=== PATIENT | male | born 1950 | race Caucasian/White ===

== ENCOUNTER 2020-11-28 13:50 | Inpatient (IN) | payer OTHER, MEDICARE ==
[~2020-11-28] VITALS: Ht 175.3 cm; Wt 99.1 kg
[~2020-11-28 13:50] MED LIST: FURO40 PO; Ferrous Glucon324 M1 PO; Fruity C250 MG PO; LACT PO; PANT40 PO; POTA10T PO; PROBIOTIC1 EAC7 PO
[2020-11-28 14:05] LABS: Calcium, Ionized (POC) 1.21 mmol/L (1.10-1.46); Chloride (POC) 104 mmol/L (98-108); Creatinine (POC) 1.1 mg/dL (0.8-1.3); Glucose (ISTAT POC) 154 mg/dL (70-99); Hemoglobin (POC) 18.7 g/dL (13.5-17.5); Potassium (POC) 3.9 mmol/L (3.5-5.5); Sodium (POC) 142 mmol/L (135-148); Total CO2 (POC) 24 mmol/L (21-32)
[2020-11-28 14:12] LABS: Hemoglobin 18.9 g/dL (13.5-17.5); Mean Corpuscular HGB 32.6 pg (26.0-34.0); Mean Corpuscular HGB Conc 33.8 g/dL (31.5-36.5); Mean Corpuscular Volume 96 fL (80-100); Mean Platelet Volume 10.9 fL (9.1-12.4); Platelet Count 163 K/mm3 (150-400); RDW Coefficient Variation 12.7 % (11.7-14.2); RDW Standard Deviation 45.3 fL (35.1-46.3); White Blood Cell Count 10.46 K/mm3 (4.00-11.30)
[2020-11-28 14:39] LABS: Alanine Aminotransfer (ALT/SGP 74 U/L (12-78); Albumin, Blood 3.9 g/dL (3.4-5.0); Albumin/Globulin Ratio 1.1 (0.8-1.8); Alk Phos 100 U/L (50-136); Anion Gap 10 mmol/L (6-16); Aspartate Aminotrans (AST/SGOT 44 U/L (12-37); Bilirubin, Total 0.6 mg/dL (0.1-1.0); Blood Urea Nitrogen 13 mg/dL (8-24); Bun/Creatinine Ratio 11.9 (12.0-20.0); CO2, Blood 24 mmol/L (21-32); Calcium, Blood 10.2 mg/dL (8.5-10.1); Chloride, Blood 107 mmol/L (98-108); Creatinine, Blood 1.09 mg/dL (0.60-1.20); Globulin, Blood 3.5 g/dL (2.2-4.0); Glomerular Filtration Rate >60 (60-); Glucose, Blood 154 mg/dL (70-99); Potassium, Blood 3.9 mmol/L (3.5-5.5); Sodium, Blood 141 mmol/L (136-145); Total Protein, Blood 7.4 g/dL (6.4-8.2); Troponin I 0.269 ng/mL (0.000-0.040)
[2020-11-28 14:54] LABS: Hematocrit 55.9 % (37.0-53.0)
--- NOTE | 2020-11-28 15:25 | NUR ---
PT TO RECOVERY ROOM POST PROCEDURE. PT AWAKE AND CONVERSING APPROPRIATELY; REPORTS CHEST PAIN RESOLVED POST INTERVENTION. MONITOR SR 90'S, B/P 143/74, AFEBRILE, SPO2 96% RA. R ULNAR SITE NO SWELLING/HEMATOMA, TR BAND IN PLACE 10 ML AIR, R RADIAL SITE NO SWELLING/HEMATOMA TR BAND IN PLACE WITH 12ML AIR. PT'S FINGERS SLIGHTLY CYANOTIC, BUT POSITIVE PLEUTH; 2 CC AIR REMOVED RADIAL TR BAND FOR TOTAL OF 10 ML.
--- NOTE | 2020-11-28 15:47 | NUR ---
Received report from Lele in the Heart center. Pt is getting en echo and then will be transported to the ICU.
--- NOTE | 2020-11-28 15:48 | NUR ---
REPORT CALLED TO DAVID LOONEY; ALL QUESTIONS ANSWERED. PT HAVING ECHO THEN WILL BE TRANSFERRED TO ICU ROOM.
[2020-11-28] MEDS ORDERED: XARELTO20 MG PO (16:24)
--- NOTE | 2020-11-28 16:42 | NUR ---
Pt arrived to the room from the heart center. He has a right ulcer access site but has 2 TR bands since the radial site was not successful. VSS. Pt is A/Ox 4 with no complaints. His [facility] is at [facility] and we have contacted them and they will keep his dog until he is dcd from the hospital and can go pick her up. Pt has a urinal at the bedside. He is able to make his needs known and has his call light in reach.
[2020-11-28] MEDS ORDERED: VITAMIN D31000 UNI1 PO (17:34)
[2020-11-28] MEDS ORDERED: ATOR80 PO (17:34)
[2020-11-28] MEDS ORDERED: METO100ER PO (17:35)
[2020-11-28] MEDS ORDERED: GABAPENTIN600 MG PO (17:36)
[2020-11-28] MEDS ORDERED: MUPIROCIN22 G4 TOP (17:37)
--- NOTE | 2020-11-28 17:47 | NUR ---
Shift Summary Pt continues to rest in bed a/o x 4. He has no complaints and is pleasant and cooperative. Balloon deflation is in progress and so far so good. He is on RA and VSS. I used a doppler to find his pedal pulse to his right foot as pt reports he has poor circualtion to this extremity. t has a urinal at the bedside and call light in reach. He is able to make his needs known.
--- NOTE | 2020-11-28 21:31 | NUR ---
SHIFT ASSESSMENT ASSUMED CARE OF PT @ 1900. REPORT RECEIVED FROM DAVID LOONEY. PT A&OX4. DENIES CP OR SOB. TR BAND TO R ULNAR AND RADIAL ARTERY. CONTINUING TO SLOWLY RELEASE PRESSURE, SMALL HEMATOMA PROXIMAL TO RADIAL ACCESS SITE. VSS. URINAL AT BEDSIDE. NO COMPLAINTS OR CONCERNS FROM PT AT THIS TIME. WILL CONTINUE TO MONITOR CLOSELY.
--- NOTE | 2020-11-28 22:30 | NUR ---
UPDATE TR BANDS REMOVED, SMALL HEMATOMA NOTED TO RADIAL ACCESS. NO C/O CP FROM PT. CONTINUING TO MONITOR CLOSELY.
--- NOTE | 2020-11-29 05:58 | NUR ---
SHIFT SUMMARY PT A&OX4. ARTERIAL ACCESS SITES c NO SIGNS OF BLEEDING, ARM BOARD REMAINS IN PLACE. PT DENIES CP BUT HAVING OCCASIONAL RUNS OF V-TACH/ ECTOPY, SEE GRAPHICS IN CHART. VSS. NO COMPLAINTS FROM PT AT THIS TIME. WILL CONTINUE TO MONITOR CLOSELY.
[2020-11-29 06:38] LABS: BASOPHILS ABSOLUTE AUTO 0.02 K/mm3 (0.00-0.23); BASOPHILS PERCENT AUTO 0 % (0-2); EOSINOPHILS ABSOLUTE AUTO 0.05 K/mm3 (0.00-0.68); EOSINOPHILS PERCENT AUTO 1 % (0-6); Hematocrit 50.1 % (37.0-53.0); Hemoglobin 16.6 g/dL (13.5-17.5); IMMATURE GRAN ABSOLUTE AUTO 0.02 K/mm3 (0.00-0.10); IMMATURE GRAN PERCENT AUTO 0 % (0-1); LYMPHOCYTES ABSOLUTE AUTO 1.38 K/mm3 (0.84-5.20); LYMPHOCYTES PERCENT AUTO 16 % (21-46); MONOCYTES ABSOLUTE AUTO 0.96 K/mm3 (0.16-1.47); MONOCYTES PERCENT AUTO 11 % (4-13); Mean Corpuscular HGB Conc 33.1 g/dL (31.5-36.5); Mean Corpuscular Volume 97 fL (80-100); Mean Platelet Volume 10.9 fL (9.1-12.4); NEUTROPHILS ABSOLUTE AUTO 6.05 K/mm3 (1.96-9.15); NEUTROPHILS PERCENT AUTO 71 % (41-73); Platelet Count 146 K/mm3 (150-400); RDW Coefficient Variation 12.6 % (11.7-14.2); RDW Standard Deviation 45.4 fL (35.1-46.3); Red Blood Cell Count 5.18 M/mm3 (4.30-5.90); White Blood Cell Count 8.48 K/mm3 (4.00-11.30)
[2020-11-29 07:14] LABS: Anion Gap 4 mmol/L (6-16); Blood Urea Nitrogen 12 mg/dL (8-24); Bun/Creatinine Ratio 12.1 (12.0-20.0); CO2, Blood 29 mmol/L (21-32); Calcium, Blood 8.5 mg/dL (8.5-10.1); Chloride, Blood 108 mmol/L (98-108); Creatinine, Blood 0.99 mg/dL (0.60-1.20); Glomerular Filtration Rate >60 (60-); Glucose, Blood 113 mg/dL (70-99); Potassium, Blood 3.8 mmol/L (3.5-5.5); Sodium, Blood 141 mmol/L (136-145)
--- NOTE | 2020-11-29 07:55 | NUR ---
pt laying in bed awake a/ox3, pleasant and cooperative with care, follows commands well, denies pain, durring the night, lungs are clear t/o resp even and unlabored, no cough noted, hrr, heart monitor in place see strip, no edema noted, pp palpated on left foot, right requires doppler from multiple surgeries, iv sites to left arm, sites are clear and patent, btx4, abd flat soft nontender, voids without diff, skin has two access to right radial and right ulnar, sites are clear, no swelling, drainage noted, clear occlusive dressing placed, arm band is in place, tata finley, robe care done, call light in reach.
--- NOTE | 2020-11-29 13:30 | NUR ---
PT UP TO BR, STEADY ON FEET. NO COMPLAINTS. NO ACUTE CHANGES, CALL LIGHT IN REACH.
--- NOTE | 2020-11-29 18:28 | NUR ---
no acute changes this shift. pt was hoping to go home today, was downgraded to pcu status. call light in reach.
--- NOTE | 2020-11-29 19:40 | NUR ---
ASSUMED CARE OF PATIENT AT APPROXIMATELY 1910 FROM MAGY Galvan RN. PATIENT ALERT AND ORIENTED X4; SBA OUT OF BED; READY TO GO HOME; [facility] AND NOT BEING ABLE TO GET IT ON THE WEEKEND; ALSO WORRIED ABOUT HIS DOG BEING AT [facility]. PATIENT DENIES PAIN, DIZZINESS OR NAUSEA. REPORTS CHRONIC N/T IN LEG FROM SURGERIES IN PAST; TAKES GABAPENTIN AT NIGHT. PIV X2 S/L. RIGHT RADIAL SITE FROM ANGIOGRAM WITH SOME BRUISING NOTED; NO ACTIVE BLEEDING. NSR ON HEART MONITOR; OXYGEN SATURATION ABOVE 90% ON ROOM AIR. PCU STATUS.
--- NOTE | 2020-11-30 05:36 | NUR ---
PATIENT SLEPT ABOUT SIX HOURS LAST NIGHT. VSS. NO CP. NO ACUTE CHANGES
[2020-11-30 06:09] LABS: BASOPHILS ABSOLUTE AUTO 0.03 K/mm3 (0.00-0.23); BASOPHILS PERCENT AUTO 0 % (0-2); EOSINOPHILS ABSOLUTE AUTO 0.09 K/mm3 (0.00-0.68); EOSINOPHILS PERCENT AUTO 1 % (0-6); Hematocrit 50.1 % (37.0-53.0); Hemoglobin 16.8 g/dL (13.5-17.5); IMMATURE GRAN ABSOLUTE AUTO 0.02 K/mm3 (0.00-0.10); IMMATURE GRAN PERCENT AUTO 0 % (0-1); LYMPHOCYTES ABSOLUTE AUTO 1.11 K/mm3 (0.84-5.20); LYMPHOCYTES PERCENT AUTO 14 % (21-46); MONOCYTES ABSOLUTE AUTO 0.83 K/mm3 (0.16-1.47); MONOCYTES PERCENT AUTO 10 % (4-13); Mean Corpuscular HGB 32.2 pg (26.0-34.0); Mean Corpuscular HGB Conc 33.5 g/dL (31.5-36.5); Mean Corpuscular Volume 96 fL (80-100); Mean Platelet Volume 11.3 fL (9.1-12.4); NEUTROPHILS ABSOLUTE AUTO 6.04 K/mm3 (1.96-9.15); NEUTROPHILS PERCENT AUTO 74 % (41-73); Platelet Count 121 K/mm3 (150-400); RDW Coefficient Variation 12.6 % (11.7-14.2); Red Blood Cell Count 5.22 M/mm3 (4.30-5.90); White Blood Cell Count 8.12 K/mm3 (4.00-11.30)
[2020-11-30 06:46] LABS: Anion Gap 4 mmol/L (6-16); Blood Urea Nitrogen 14 mg/dL (8-24); Bun/Creatinine Ratio 15.7 (12.0-20.0); CHOL/HDL RATIO 4.1; CO2, Blood 28 mmol/L (21-32); Calcium, Blood 8.6 mg/dL (8.5-10.1); Chloride, Blood 110 mmol/L (98-108); Cholesterol 119 mg/dL (50-200); Creatinine, Blood 0.89 mg/dL (0.60-1.20); Glomerular Filtration Rate >60 (60-); Glucose, Blood 98 mg/dL (70-99); HDL Cholesterol 29 mg/dL (>39); LDL/HDL RATIO 1.4; Low Density Lipoprotein Chol 41 mg/dL (0-110); Potassium, Blood 3.9 mmol/L (3.5-5.5); Sodium, Blood 142 mmol/L (136-145); Triglycerides 247 mg/dL (30-160); Very Low Density Lipoprot Chol 49 mg/dL (6-32)
--- NOTE | 2020-11-30 09:30 | NUR ---
DR. MENDOZA AT BEDSIDE. DISCUSSED POC. NOTIFIED HIM I COULD ONLY GET RADIAL AND ULNAR PULSE ON PATIENT'S R WRIST VIA DOPPLER. DR. MENDOZA VIEWED SITE AND STATED THAT IT LOOKED FINE, PATIENT DOES HAVE BRUISING BUT IT IS NOT HARD. DR. MENDOZA REMOVED TEGADERM TO SITE. STATES PLAN IS TO DISCHARGE HOME TODAY. PATIENT NEEDS TO ST[facility] LETTER[facility] SO THAT HE CAN HAVE HIS MEDS THIS WEEKEND. OK FOR PATIENT TO DRIVE HIMSELF TODAY. PLAN IS FOR CARDIAC REHAB AND F/U APPOINTMENT IN 3 WEEKS.
[2020-11-30] MEDS ORDERED: Aspir 8181 MG PO (11:09)
[2020-11-30] MEDS ORDERED: CLOP75 PO (11:11)
[2020-11-30] MEDS ORDERED: IRBE75 PO (11:12)
[2020-11-30] MEDS ORDERED: NITR.4SL SL (11:13)
--- NOTE | 2020-11-30 12:45 | NUR ---
PATIENT DISCHARGED HOME AT APPROXIMATELY 1220. ESCORTED OUT VIA WHELLCHAIR BY JOHNNA KEBEDE. [facility] CAME TO DRIVE PATIENT TO THE [place] WHERE HIS CAR IS SO THAT HE CAN DRIVE HOME. OK TO DRIVE PER DR. MENDOZA. MEDICATIONS CALLED TO [facility] ON [address] BY TABBY HERNANDEZ. GAVE PATIENT HIS STENT CARD AND XARELTO COUPON. REVIEWED DISCHARGE INSTRUCTIONS AND DISCHARGE MEDICATIONS WITH PATIENT, COPIES GIVEN TO TAKE HOME, NO FURTHER QUESTIONS AT TIME OF DISCHARGE. PATIENT AWARE TO GO FINISHER OPERATOR MEDICATIONS AT [facility] AND TO NOT WAIT UNTIL [facility]NESDAY WHEN [facility]. DISCHARGE ORDERS FAXED TO CARDIOLOGY OFFICE SO THAT THEY CAN CALL PATIENT TO SCHEDULE FOLLOW UP APPOINTMENT. NO FURTHER QUESTIONS AT TIME OF DISCHARGE. IV'S D/C'D.
== END 2020-11-30 12:50 | disposition home or self-care (01) | DRG 247 ==
LOC: ER 13:50 → ICUW 14:02
PROVIDERS: Emergency Medicine; Internal Medicine Cardiovascular Disease; ADMIT Internal Medicine Cardiovascular Disease
PROC: 027034Z Dilation of Coronary Artery, One Artery with Drug-eluting Intraluminal Device, Percutaneous Approach (ICD-10-PCS; principal; 2020-11-28)
PROC: B2111ZZ Fluoroscopy of Multiple Coronary Arteries using Low Osmolar Contrast (ICD-10-PCS; 2020-11-28)
DX: I21.29 ST elevation (STEMI) myocardial infarction involving other sites (principal); I73.9 Peripheral vascular disease, unspecified; I10 Essential (primary) hypertension; E78.5 Hyperlipidemia, unspecified; I25.5 Ischemic cardiomyopathy; F17.200 Nicotine dependence, unspecified, uncomplicated; Z71.6 Tobacco abuse counseling; Z79.01 Long term (current) use of anticoagulants
CPT/HCPCS: 36415; 76937; 80047; 80048; 80053; 80061; 84484; 85014; 85025; 85027; 85347; 86850; 86900; 86901; 92920; 92921; 93005; 93010; 93454; 96374-59; 99152; 99153; 99285-25; A9270; C1725; C1769; C1874; C1887; C1894; C8923; C9606; J0461; J1644; J2250; J3010; J7030; J7040; Q9957; Q9967

== ENCOUNTER 2021-01-06 10:42 | Observation (INO) | payer OTHER, MEDICARE ==
[~2021-01-06] VITALS: Ht 180.3 cm; Wt 105.0 kg
[~2021-01-06 10:42] MED LIST changes: +ATOR80 PO; +Aspir 8181 MG PO; +CLOP75 PO; +GABAPENTIN600 MG PO; +IRBE75 PO; +METO100ER PO; +MUPIROCIN22 G4 TOP; +NITR.4SL SL; +VITAMIN D31000 UNI1 PO; +XARELTO20 MG PO
[2021-01-06 11:15] LABS: BASOPHILS ABSOLUTE AUTO 0.03 K/mm3 (0.00-0.23); BASOPHILS PERCENT AUTO 1 % (0-2); EOSINOPHILS ABSOLUTE AUTO 0.07 K/mm3 (0.00-0.68); EOSINOPHILS PERCENT AUTO 1 % (0-6); Hematocrit 45.8 % (37.0-53.0); Hemoglobin 15.2 g/dL (13.5-17.5); IMMATURE GRAN ABSOLUTE AUTO 0.01 K/mm3 (0.00-0.10); IMMATURE GRAN PERCENT AUTO 0 % (0-1); LYMPHOCYTES ABSOLUTE AUTO 0.84 K/mm3 (0.84-5.20); LYMPHOCYTES PERCENT AUTO 15 % (21-46); MONOCYTES ABSOLUTE AUTO 0.62 K/mm3 (0.16-1.47); MONOCYTES PERCENT AUTO 11 % (4-13); Mean Corpuscular HGB 31.9 pg (26.0-34.0); Mean Corpuscular HGB Conc 33.2 g/dL (31.5-36.5); Mean Corpuscular Volume 96 fL (80-100); Mean Platelet Volume 10.4 fL (9.1-12.4); NEUTROPHILS ABSOLUTE AUTO 3.91 K/mm3 (1.96-9.15); NEUTROPHILS PERCENT AUTO 71 % (41-73); NRBC ABSOLUTE 0.03 K/mm3 (0.00-0.02); NRBC Auto 0.5 /100 WBC (0.0-0.2); Platelet Count 154 K/mm3 (150-400); RDW Coefficient Variation 14.2 % (11.7-14.2); RDW Standard Deviation 50.5 fL (35.1-46.3); Red Blood Cell Count 4.77 M/mm3 (4.30-5.90); White Blood Cell Count 5.48 K/mm3 (4.00-11.30)
[2021-01-06 11:33] LABS: Alanine Aminotransfer (ALT/SGP 23 U/L (12-78); Albumin, Blood 3.3 g/dL (3.4-5.0); Alk Phos 85 U/L (50-136); Anion Gap 5 mmol/L (6-16); Aspartate Aminotrans (AST/SGOT 18 U/L (12-37); Bilirubin, Total 0.6 mg/dL (0.1-1.0); Blood Urea Nitrogen 12 mg/dL (8-24); Bun/Creatinine Ratio 12.7 (12.0-20.0); CO2, Blood 29 mmol/L (21-32); Calcium, Blood 7.9 mg/dL (8.5-10.1); Chloride, Blood 112 mmol/L (98-108); Creatinine, Blood 0.94 mg/dL (0.60-1.20); Globulin, Blood 3.4 g/dL (2.2-4.0); Glomerular Filtration Rate >60 (60-); Glucose, Blood 108 mg/dL (70-99); Sodium, Blood 146 mmol/L (136-145); Total Protein, Blood 6.7 g/dL (6.4-8.2); Troponin I 0.032 ng/mL (0.000-0.040)
[2021-01-06] MEDS ORDERED: ATOR80 PO (11:40)
[2021-01-06] MEDS ORDERED: THERA-D2000 UNIT PO (11:41)
[2021-01-06] MEDS ORDERED: GABAPENTIN600 MG PO (11:41)
[2021-01-06] MEDS ORDERED: NEURONTIN600 MG PO (11:43)
[2021-01-06] MEDS ORDERED: PANT40 PO (11:43)
[2021-01-06] MEDS ORDERED: XARELTO20 MG PO (11:44)
[2021-01-06] MEDS ORDERED: MUPIROCIN22 G4 (11:45)
[2021-01-06] MEDS ORDERED: METO50ER PO (11:45)
[2021-01-06 14:42] LABS: SARS-Cov-2 (COVID-19) PCR, MMC NEGATIVE (NEGATIVE)
--- NOTE | 2021-01-06 18:11 | NUR ---
PT TO ROOM 217 AT 1715. PT IS A/O X4, SBA FROM WHEELCHAIR TO BED. ORIENTED TO ROOM AND CALL LIGHT. PT TOLERATING PO INTAKE. URINAL AT BEDSIDE. PT DENIES CHEST PAIN/PRESSURE. TELE PLACED. CALL LIGHT IN REACH.
[2021-01-07 05:06] LABS: BASOPHILS ABSOLUTE AUTO 0.03 K/mm3 (0.00-0.23); BASOPHILS PERCENT AUTO 1 % (0-2); EOSINOPHILS PERCENT AUTO 2 % (0-6); Hematocrit 41.8 % (37.0-53.0); Hemoglobin 13.7 g/dL (13.5-17.5); IMMATURE GRAN ABSOLUTE AUTO 0.02 K/mm3 (0.00-0.10); IMMATURE GRAN PERCENT AUTO 0 % (0-1); LYMPHOCYTES ABSOLUTE AUTO 1.28 K/mm3 (0.84-5.20); LYMPHOCYTES PERCENT AUTO 26 % (21-46); MONOCYTES ABSOLUTE AUTO 0.69 K/mm3 (0.16-1.47); MONOCYTES PERCENT AUTO 14 % (4-13); Mean Corpuscular HGB 31.5 pg (26.0-34.0); Mean Corpuscular HGB Conc 32.8 g/dL (31.5-36.5); Mean Corpuscular Volume 96 fL (80-100); Mean Platelet Volume 10.7 fL (9.1-12.4); NEUTROPHILS ABSOLUTE AUTO 2.77 K/mm3 (1.96-9.15); NEUTROPHILS PERCENT AUTO 57 % (41-73); Platelet Count 132 K/mm3 (150-400); RDW Coefficient Variation 14.1 % (11.7-14.2); RDW Standard Deviation 49.1 fL (35.1-46.3); Red Blood Cell Count 4.35 M/mm3 (4.30-5.90); White Blood Cell Count 4.89 K/mm3 (4.00-11.30)
[2021-01-07 05:37] LABS: Anion Gap 6 mmol/L (6-16); Blood Urea Nitrogen 12 mg/dL (8-24); Bun/Creatinine Ratio 13.5 (12.0-20.0); CO2, Blood 27 mmol/L (21-32); Calcium, Blood 7.3 mg/dL (8.5-10.1); Chloride, Blood 112 mmol/L (98-108); Creatinine, Blood 0.89 mg/dL (0.60-1.20); Glomerular Filtration Rate >60 (60-); Glucose, Blood 93 mg/dL (70-99); Potassium, Blood 3.4 mmol/L (3.5-5.5); Sodium, Blood 145 mmol/L (136-145)
--- NOTE | 2021-01-07 06:10 | NUR ---
SHIFT SUMMARY: PT DENIES CP THROUGHOUT SHIFT. EKG DONE PER TELE RECOMMENDATION AY 2200. NO CHANGES IN EKG COMPARED TO PREVIOUS ONE DONE THIS ADMISSION. HR DROPPING IN 40'S WHILE PT SLEEPING. 5 BEAT RUN OF V-TACH AT APPROX 0120. NITRO OINTMENT APPLIED TO LEFT CHEST PER ORDERS. PT DENIES N/V.
--- NOTE | 2021-01-07 13:49 | NUR ---
PT TO ACID BATH MIXER FOR PROCEDURE
--- NOTE | 2021-01-07 14:22 | NUR ---
TRANSFER PT HAS BEEN A/O X4, IND OR SBA IN ROOM. TOLERATING PO INTAKE AND VOIDING. PT HAS DENIED CHEST PAIN/PRESSURE T/O THE DAY. TELE HAS BEEN IN PLACE. PT SEEN BY DR BRAVO THIS AFTERNOON AND WAS TAKEN TO TOOL FILER ABOUT 1330. HE WILL BE GOING TO PCU 1 TO RECOVER. REPORT GIVEN TO DIGITAL MEDIA DESIGNER. PERSONAL BELONGINGS TAKEN TO PCU1 ROOM. MEDICATIONS LOCKED IN PCU1 DRAWER.
--- NOTE | 2021-01-07 16:20 | NUR ---
Pt arrived to PCU 1. TR band in place, ulnar access. Fingers of right hand distal to TR band are pink, with cap refill 3 seconds. Pt denies pain. Swelling noted distally and proximally to the TR band on the right wrist, and compressed with gauze and coban. Pt continues to deny pain. Cap refill remains brisk. Vital signs are stable. Pt denies dyspnea, denies chest pain.
[2021-01-07] MEDS ORDERED: ASPI81CH PO (17:05)
[2021-01-07] MEDS ORDERED: IRBE150 PO (17:05)
[2021-01-07] MEDS ORDERED: CLOP75 PO (17:05)
[2021-01-07] MEDS ORDERED: Isosorbide Mono30 MG PO (17:06)
--- NOTE | 2021-01-07 17:13 | NUR ---
UPDATE RN HOLDING PRESSURE AND ELEVATING RIGHT WRIST WHERE NOTED SWELLING IS LOCATED. SWELLING IS LOCATED DISTAL TO TR BAND. MANUAL PRESSURE IS RELIEVING SOME SWELLING AND TISSUE SURROUNDING TR BAND IS BECOMING MORE SOFT. TR BAND STILL INFLATED WITH 11 ML OF AIR. CAP REFILL LESS THAN 2 SECONDS. SPO2 MONITOR LOCATED ON RIGHT THIRD FINGER READING SATURATIONS ABOVE 95%. PATIENT DENIES PAIN AT ANGIO SITE WELL CHEST PAIN OR DISCOMFORT.
--- NOTE | 2021-01-07 17:56 | NUR ---
UPDATE CALL PLACED TO DR. WEIR CONCERNING SWELLING AROUND TR BAND. DR. WEIR RECOMMENDED CONSERVATIVE DEFLATION OF TR BAND DUE TO SEVERAL ATTEMPTS DURING ANGIO. COBAN/GAUZE PLACED AROUND SWELLING. O2 SATURATION ON RIGHT FINGERS STILL MAINTAINING ABOVE 95%.
--- NOTE | 2021-01-07 22:12 | NUR ---
SHIFT SUMMARY ASSUMED CARE OF PT AT 1900. PT IS A/OX4. HEART SOUNDS REGULAR, LUNG SOUNDS CLEAR. PT HAS A R RADIAL SITE. PER DAYSHIFT, THE SWELLING IN PT ARM HAS BEEN THERE FOR A WHILE NOW AND DR WEIR IS AWARE OF IT. PT TR BAND FINISHED BEING DELFATED AT 2100. NO MORE BLEEDING OR SWELLING NOTED, THERE IS BRUSING AND PT STATES THAT IT SLIGHTLY PAINFUL. PT WAS EDUCATED ABOUT HOW DRIVING AFTER ANESESIA IS NOT ADVISED AND NEITHER IS USING HIS R WRIST. PT VERBALIZED UNDERSTANDING. SITE CLEANED AND DRESSED, PT LEFT WITH ARM BOARD ON. [employer] [facility] NOTIFIED TO PICK PT UP AT ER ENTRANCE AT 2200. PT LEFT ROOM AT 2202.
== END 2021-01-07 22:00 | disposition home or self-care (01) ==
LOC: ER 10:42 → ERHOLD 10:43 → SURS 10:43 → UNDODEPER 17:17 → SURS 17:25 → PCU 01-07 16:10
PROVIDERS: Emergency Medicine; Nurse Practitioner Acute Care; ADMIT Internal Medicine
DX: R07.89 Other chest pain (principal); I25.2 Old myocardial infarction; F17.210 Nicotine dependence, cigarettes, uncomplicated; I25.10 Atherosclerotic heart disease of native coronary artery without angina pectoris; I50.22 Chronic systolic (congestive) heart failure; I25.5 Ischemic cardiomyopathy; I11.0 Hypertensive heart disease with heart failure; E78.5 Hyperlipidemia, unspecified; Z20.822 Contact with and (suspected) exposure to COVID-19; I73.9 Peripheral vascular disease, unspecified; K21.9 Gastro-esophageal reflux disease without esophagitis; Z79.01 Long term (current) use of anticoagulants; Z79.82 Long term (current) use of aspirin; Z79.02 Long term (current) use of antithrombotics/antiplatelets; Z95.5 Presence of coronary angioplasty implant and graft
CPT/HCPCS: 36415; 71045; 80048; 80053; 84484; 85025; 85347; 92978; 92979; 93005; 93010; 93454; 99152; 99153; 99285-25; A9270; C1753; C1769; C1887; C1894; G0378; J1644; J2250; J3010; J7030; J7050; Q9967; U0004

== ENCOUNTER 2021-02-27 18:42 | Emergency (ER) | payer OTHER ==
[~2021-02-27] VITALS: Ht 177.8 cm; Wt 99.8 kg
[~2021-02-27 18:42] MED LIST changes: +ASPI81CH PO; +IRBE150 PO; +Isosorbide Mono30 MG PO; +METO50ER PO; +MUPIROCIN22 G4; +NEURONTIN600 MG PO; +THERA-D2000 UNIT PO
[2021-02-27 19:12] LABS: PCO2 Arterial 38.8 mmHg (35-45); PO2 Arterial 77.1 mmHg (80-100); pH Blood Arterial 7.33 (7.35-7.45)
== END 2021-02-27 19:44 | disposition home or self-care (01) ==
LOC: ER 18:42
PROVIDERS: Physician Assistant
DX: T59.811A Toxic effect of smoke, accidental (unintentional), initial encounter (principal); I25.2 Old myocardial infarction; F17.200 Nicotine dependence, unspecified, uncomplicated; Z79.899 Other long term (current) drug therapy; Z79.02 Long term (current) use of antithrombotics/antiplatelets
CPT/HCPCS: 36600; 71045; 82375; 82803; 99284-25

== ENCOUNTER 2021-03-28 10:16 | Inpatient (IN) | payer OTHER ==
[~2021-03-28] VITALS: Ht 165.1 cm; Wt 102.0 kg
[~2021-03-28 10:16] MED LIST changes: -Isosorbide Mono30 MG PO; +Isosorbide Mono60 MG PO; +XARELTO10 MG PO
[2021-03-28 10:35] LABS: Calcium, Ionized (POC) 1.08 mmol/L (1.10-1.46); Chloride (POC) 104 mmol/L (98-108); Creatinine (POC) 1.5 mg/dL (0.8-1.3); Glucose (ISTAT POC) 127 mg/dL (70-99); Hemoglobin (POC) 19.7 g/dL (13.5-17.5); Potassium (POC) 2.9 mmol/L (3.5-5.5); Sodium (POC) 144 mmol/L (135-148); Total CO2 (POC) 24 mmol/L (21-32)
[2021-03-28 10:50] LABS: BASOPHILS ABSOLUTE AUTO 0.05 K/mm3 (0.00-0.23); BASOPHILS PERCENT AUTO 1 % (0-2); EOSINOPHILS ABSOLUTE AUTO 0.06 K/mm3 (0.00-0.68); EOSINOPHILS PERCENT AUTO 1 % (0-6); Hemoglobin 19.1 g/dL (13.5-17.5); IMMATURE GRAN ABSOLUTE AUTO 0.03 K/mm3 (0.00-0.10); IMMATURE GRAN PERCENT AUTO 0 % (0-1); LYMPHOCYTES ABSOLUTE AUTO 1.68 K/mm3 (0.84-5.20); LYMPHOCYTES PERCENT AUTO 18 % (21-46); MONOCYTES ABSOLUTE AUTO 0.99 K/mm3 (0.16-1.47); MONOCYTES PERCENT AUTO 11 % (4-13); Mean Corpuscular HGB Conc 33.2 g/dL (31.5-36.5); Mean Corpuscular Volume 93 fL (80-100); Mean Platelet Volume 10.7 fL (9.1-12.4); NEUTROPHILS PERCENT AUTO 70 % (41-73); Platelet Count 254 K/mm3 (150-400); RDW Coefficient Variation 14.5 % (11.7-14.2); RDW Standard Deviation 49.6 fL (35.1-46.3); Red Blood Cell Count 6.17 M/mm3 (4.30-5.90); White Blood Cell Count 9.31 K/mm3 (4.00-11.30)
[2021-03-28 11:14] LABS: Alanine Aminotransfer (ALT/SGP 23 U/L (12-78); Albumin, Blood 3.8 g/dL (3.4-5.0); Albumin/Globulin Ratio 0.9 (0.8-1.8); Alk Phos 112 U/L (50-136); Anion Gap 10 mmol/L (6-16); Aspartate Aminotrans (AST/SGOT 22 U/L (12-37); Bilirubin, Total 0.4 mg/dL (0.1-1.0); Blood Urea Nitrogen 20 mg/dL (8-24); CO2, Blood 23 mmol/L (21-32); Calcium, Blood 8.4 mg/dL (8.5-10.1); Chloride, Blood 108 mmol/L (98-108); Creatinine, Blood 1.43 mg/dL (0.60-1.20); Globulin, Blood 4.4 g/dL (2.2-4.0); Glomerular Filtration Rate 49 (60-); Glucose, Blood 124 mg/dL (70-99); Potassium, Blood 2.9 mmol/L (3.5-5.5); Sodium, Blood 141 mmol/L (136-145); Total Protein, Blood 8.2 g/dL (6.4-8.2); Troponin I <0.015 ng/mL (0.000-0.040)
[2021-03-28 11:24] LABS: Hematocrit 57.5 % (37.0-53.0)
[2021-03-28 13:32] LABS: International Normalized Ratio 1.16; Prothrombin Time Results 12.1 Sec (9.7-11.5)
[2021-03-28 18:05] LABS: SARS-Cov-2 (COVID-19) PCR, MMC NEGATIVE (NEGATIVE)
--- NOTE | 2021-03-28 18:49 | NUR ---
RECIEVED PATIETN FROM PRODUCTION ASSEMBLY SUPERVISOR, REPORT GIVEN BEDSIDE. ASSESSMENT NOTED IN CHART. PT IN NSR, HTN BP 180/103, LS CLEAR AND IN NO DISTRESS. WILL CONTINUE TO MONITIR.
--- NOTE | 2021-03-28 18:51 | NUR ---
PT HAD RUNS OF VTACH AT APPROX 1500, MAG AT 1.3, MAG GIVEN ORDERED AND PT VTACH RESOLVED
[2021-03-28 21:02] LABS: Source, Urine Clean Catch
[2021-03-28 21:04] LABS: Bilirubin, Urine Neg (Neg); Blood, Urine 1+ (Neg); Glucose Qualitative, Urine Neg (Neg); Ketones, Urine 2+ (Neg); Leukocyte Esterase, Urine 1+ (Neg); Nitrite, Urine Neg (Neg); Protein, Urine 1+ (Neg); Urobilinogen, Urine NORM (Normal)
[2021-03-28 21:14] LABS: Appearance, Urine Hazy (Clear); Color, Urine Yellow (P-Yellow)
[2021-03-28 21:16] LABS: Red Blood Cells, Urine 0-2 /hpf (0-2); Squamous Epithelial Cells Few /hpf (Few)
[2021-03-28 21:17] LABS: Bacteria Rare /hpf; Hyaline Casts 0-2 /lpf (0-2)
[2021-03-28 21:18] LABS: U Amphetamine Screen Not Detected; U Barbituate Screen Not Detected; U Benzodiazapine Screen Not Detected; U Buprenorphine Screen Not Detected; U Cannabinoids Screen Not Detected; U Cocaine Screen Not Detected; U Methadone Screen Not Detected; U Methamphetamine Screen DETECTED; U Opiates Screen Not Detected; U Oxycodone Screen Not Detected; U Phencyclidine Screen Not Detected; U Propoxyphene Screen Not Detected
[2021-03-29 01:12] LABS: BASOPHILS ABSOLUTE AUTO 0.04 K/mm3 (0.00-0.23); BASOPHILS PERCENT AUTO 1 % (0-2); EOSINOPHILS ABSOLUTE AUTO 0.04 K/mm3 (0.00-0.68); EOSINOPHILS PERCENT AUTO 1 % (0-6); Hematocrit 46.2 % (37.0-53.0); Hemoglobin 15.3 g/dL (13.5-17.5); IMMATURE GRAN ABSOLUTE AUTO 0.02 K/mm3 (0.00-0.10); IMMATURE GRAN PERCENT AUTO 0 % (0-1); LYMPHOCYTES ABSOLUTE AUTO 0.65 K/mm3 (0.84-5.20); LYMPHOCYTES PERCENT AUTO 8 % (21-46); MONOCYTES ABSOLUTE AUTO 0.94 K/mm3 (0.16-1.47); MONOCYTES PERCENT AUTO 12 % (4-13); Mean Corpuscular HGB 30.8 pg (26.0-34.0); Mean Corpuscular HGB Conc 33.1 g/dL (31.5-36.5); Mean Corpuscular Volume 93 fL (80-100); Mean Platelet Volume 10.6 fL (9.1-12.4); NEUTROPHILS ABSOLUTE AUTO 6.11 K/mm3 (1.96-9.15); NEUTROPHILS PERCENT AUTO 78 % (41-73); Platelet Count 165 K/mm3 (150-400); RDW Coefficient Variation 14.6 % (11.7-14.2); RDW Standard Deviation 49.4 fL (35.1-46.3); Red Blood Cell Count 4.97 M/mm3 (4.30-5.90)
[2021-03-29 01:31] LABS: Magnesium, Blood 1.4 mg/dL (1.6-2.4)
[2021-03-29 01:33] LABS: Alanine Aminotransfer (ALT/SGP 32 U/L (12-78); Albumin, Blood 2.8 g/dL (3.4-5.0); Albumin/Globulin Ratio 0.8 (0.8-1.8); Alk Phos 81 U/L (50-136); Anion Gap 7 mmol/L (6-16); Aspartate Aminotrans (AST/SGOT 197 U/L (12-37); Bilirubin, Total 0.8 mg/dL (0.1-1.0); Blood Urea Nitrogen 21 mg/dL (8-24); CO2, Blood 24 mmol/L (21-32); Calcium, Blood 7.6 mg/dL (8.5-10.1); Chloride, Blood 111 mmol/L (98-108); Globulin, Blood 3.4 g/dL (2.2-4.0); Glomerular Filtration Rate >60 (60-); Glucose, Blood 117 mg/dL (70-99); Potassium, Blood 3.4 mmol/L (3.5-5.5); Sodium, Blood 142 mmol/L (136-145)
[2021-03-29 01:34] LABS: Total Protein, Blood 6.2 g/dL (6.4-8.2)
--- NOTE | 2021-03-29 06:26 | NUR ---
RESTING AT THIS TIME, RIGHT GROIN AND RIGHT WRIST UNCHANGED FROM INITIAL ASSESSMENT. UP TO BATHROOM A COUPLE OF TIMES AND TOLERATED WELL. REAPPLIED O2 DUE TO DESAT WHILE SLEEPING. O2 SATS HIGH 90'S ON ROOM AIR WHILE AWAKE, DROPPING DOWN TO LOW 80'S WHILE SLEEPING. HEART RATE SR WITH OCCASIONAL RUNS OF VTACH.
--- NOTE | 2021-03-29 08:15 | NUR ---
ASSUMED CARE BEDSIDE REPORT FROM MULU HERNANDEZ. PT RESTING IN BED. A&OX 3. ANSWERS QUESTIONS APPROPRIATELY. DENIES COMPLAINTS. LUNGS COARSE. NON PRODUCTIVE COUGH. HX OF SMOKING. SR, RATE 70'S. NO ECTOPY NOTED AT THIS TIME. MAG AND K TO BE REPLACED. BP STABLE. ABD ROUND, SOFT, NON TENDER. BT X 4. PT INDEPENDENT. PUNTUCE SITES TO RIGHT RADIAL, DRESSING C/D/I, NO BRUISING OR SWELLING NOTED, RIGHT GROIN, ECCHYMOSIS NOTED, SOFT, NON TENDER. HEPARIN GTT INFUSING AT 17 UNITS/HR. WILL CONTINUE TO MONITOR.
--- NOTE | 2021-03-29 17:31 | NUR ---
SHIFT SUMMARY PT STATUS CHANGED TO PCU THIS SHIFT. NO ACUTE CHANGES. PLAN TO D/C HEPARIN PRIOR TO SHIFT CHANGE. BRILINTA AND PLAVIX STARTED. GROIN AND RADIAL SITES REMAIN UNCHANGED. K AND MAG REPLACED THIS SHIFT. VSS. WILL CONTINUE TO MONITOR UNTIL REPORT TO ONCOMING NURSE.
[2021-03-30 04:05] LABS: BASOPHILS ABSOLUTE AUTO 0.02 K/mm3 (0.00-0.23); BASOPHILS PERCENT AUTO 0 % (0-2); EOSINOPHILS ABSOLUTE AUTO 0.11 K/mm3 (0.00-0.68); EOSINOPHILS PERCENT AUTO 2 % (0-6); Hematocrit 40.8 % (37.0-53.0); Hemoglobin 13.1 g/dL (13.5-17.5); IMMATURE GRAN ABSOLUTE AUTO 0.03 K/mm3 (0.00-0.10); IMMATURE GRAN PERCENT AUTO 0 % (0-1); LYMPHOCYTES ABSOLUTE AUTO 0.85 K/mm3 (0.84-5.20); LYMPHOCYTES PERCENT AUTO 13 % (21-46); MONOCYTES PERCENT AUTO 12 % (4-13); Mean Corpuscular HGB 30.9 pg (26.0-34.0); Mean Corpuscular HGB Conc 32.1 g/dL (31.5-36.5); Mean Corpuscular Volume 96 fL (80-100); Mean Platelet Volume 11.2 fL (9.1-12.4); NEUTROPHILS ABSOLUTE AUTO 4.98 K/mm3 (1.96-9.15); NEUTROPHILS PERCENT AUTO 73 % (41-73); Platelet Count 135 K/mm3 (150-400); RDW Coefficient Variation 14.5 % (11.7-14.2); RDW Standard Deviation 50.6 fL (35.1-46.3); Red Blood Cell Count 4.24 M/mm3 (4.30-5.90); White Blood Cell Count 6.79 K/mm3 (4.00-11.30)
[2021-03-30 04:24] LABS: Albumin, Blood 2.6 g/dL (3.4-5.0); Anion Gap 5 mmol/L (6-16); Blood Urea Nitrogen 13 mg/dL (8-24); Bun/Creatinine Ratio 13.2 (12.0-20.0); CO2, Blood 24 mmol/L (21-32); Calcium, Blood 7.8 mg/dL (8.5-10.1); Chloride, Blood 114 mmol/L (98-108); Creatinine, Blood 0.99 mg/dL (0.60-1.20); Glomerular Filtration Rate >60 (60-); Glucose, Blood 101 mg/dL (70-99); Magnesium, Blood 1.4 mg/dL (1.6-2.4); Phosphorus, Blood 1.9 mg/dL (2.5-4.9); Potassium, Blood 3.4 mmol/L (3.5-5.5); Sodium, Blood 143 mmol/L (136-145)
--- NOTE | 2021-03-30 05:53 | NUR ---
RESTING AT THIS TIME. OXYGEN APPLIED AT 2L NC THROUGH NIGHT DUE TO SATS DROPPING WHILE SLEEPING. GROIN SITE REMAINS UNCHANGED. POTASSIUM AND MAG LEVELS LOW THIS AM, ORDER RECIEVED FOR REPLACEMENT.
[2021-03-30 08:47] LABS: Albumin, Blood 2.7 g/dL (3.4-5.0); Anion Gap 6 mmol/L (6-16); Blood Urea Nitrogen 11 mg/dL (8-24); Bun/Creatinine Ratio 12.1 (12.0-20.0); CO2, Blood 25 mmol/L (21-32); Calcium, Blood 7.6 mg/dL (8.5-10.1); Chloride, Blood 113 mmol/L (98-108); Creatinine, Blood 0.91 mg/dL (0.60-1.20); Glomerular Filtration Rate >60 (60-); Glucose, Blood 88 mg/dL (70-99); Magnesium, Blood 1.8 mg/dL (1.6-2.4); Potassium, Blood 3.6 mmol/L (3.5-5.5); Sodium, Blood 144 mmol/L (136-145)
--- NOTE | 2021-03-30 09:05 | NUR ---
ASSUMED CARE REPORT FROM MULU HERNANDEZ AT 0700. PT RESTING IN BED. A&OX 3. DENIES COMPLAINTS. LUNGS DIM IN BASES. VSS. NO CHANGES IN GROIN AND RADIAL SITES. ANTICIPATE D/C TODAY. WILL CONTINUE TO MONITOR.
[2021-03-30] MEDS ORDERED: NICO21TP TOP (11:35)
[2021-03-30] MEDS ORDERED: TICA90TA PO (11:36)
[2021-03-30] MEDS ORDERED: ACET325 PO (11:37)
--- NOTE | 2021-03-30 12:42 | NUR ---
D/C INSTRUCTIONS PROVIDED. PT TO F/U c CARDIOLOGY IN 1 WEEK, PCP IN 3 DAYS AT [facility]. RX SENT TO [facility]. VERBALIZED UNDERSTANDING OF D/C INSTRUCTIONS. ALL BELONGINGS SENT HOME c PT. IV'S REMOVED AND DRESSINGS APPLIED. OTD NAD.
== END 2021-03-30 12:30 | disposition home or self-care (01) | DRG 246 ==
LOC: ER 10:16 → ICUW 10:35 → ICUE 10:35
PROVIDERS: Emergency Medicine; Internal Medicine; Nurse Practitioner Acute Care
PROC: 027034Z Dilation of Coronary Artery, One Artery with Drug-eluting Intraluminal Device, Percutaneous Approach (ICD-10-PCS; principal; 2021-03-28)
PROC: B2111ZZ Fluoroscopy of Multiple Coronary Arteries using Low Osmolar Contrast (ICD-10-PCS; 2021-03-28)
PROC: 4A023N7 Measurement of Cardiac Sampling and Pressure, Left Heart, Percutaneous Approach (ICD-10-PCS; 2021-03-28)
DX: T82.855A Stenosis of coronary artery stent, initial encounter (principal); I21.A9 Other myocardial infarction type; I21.19 ST elevation (STEMI) myocardial infarction involving other coronary artery of inferior wall; I50.22 Chronic systolic (congestive) heart failure; N17.9 Acute kidney failure, unspecified; E87.6 Hypokalemia; Z20.822 Contact with and (suspected) exposure to COVID-19; F17.210 Nicotine dependence, cigarettes, uncomplicated; E83.42 Hypomagnesemia; E83.39 Other disorders of phosphorus metabolism; I25.5 Ischemic cardiomyopathy; I25.10 Atherosclerotic heart disease of native coronary artery without angina pectoris; I73.9 Peripheral vascular disease, unspecified; E78.5 Hyperlipidemia, unspecified; Z79.899 Other long term (current) drug therapy; Z98.890 Other specified postprocedural states; I10 Essential (primary) hypertension; Z79.82 Long term (current) use of aspirin
CPT/HCPCS: 36415; 80047; 80053; 80069; 81001; 82550; 83735; 84484; 85014; 85025; 85347; 85610; 85730; 87086; 92921; 92941; 93005; 93010; 93458; 99152; 99153; 99285-25; A9270; C1725; C1760; C1769; C1874; C1887; C1894; C8929; C9606; J1644; J2250; J3010; J3246; J3475; J3480; J7030; J7050; Q9957; Q9967; U0004

== ENCOUNTER 2021-04-17 21:52 | Inpatient (IN) | payer OTHER ==
[~2021-04-17] VITALS: Ht 180.3 cm; Wt 103.0 kg
[~2021-04-17 21:52] MED LIST changes: +ACET325 PO; +NICO21TP TOP; +TICA90TA PO
[2021-04-17 23:22] LABS: BASOPHILS ABSOLUTE AUTO 0.04 K/mm3 (0.00-0.23); BASOPHILS PERCENT AUTO 1 % (0-2); EOSINOPHILS ABSOLUTE AUTO 0.05 K/mm3 (0.00-0.68); EOSINOPHILS PERCENT AUTO 1 % (0-6); Hematocrit 46.7 % (37.0-53.0); Hemoglobin 15.5 g/dL (13.5-17.5); IMMATURE GRAN ABSOLUTE AUTO 0.02 K/mm3 (0.00-0.10); IMMATURE GRAN PERCENT AUTO 0 % (0-1); LYMPHOCYTES ABSOLUTE AUTO 1.14 K/mm3 (0.84-5.20); LYMPHOCYTES PERCENT AUTO 14 % (21-46); MONOCYTES PERCENT AUTO 10 % (4-13); Mean Corpuscular HGB 31.1 pg (26.0-34.0); Mean Corpuscular HGB Conc 33.2 g/dL (31.5-36.5); Mean Corpuscular Volume 94 fL (80-100); Mean Platelet Volume 10.6 fL (9.1-12.4); NEUTROPHILS PERCENT AUTO 75 % (41-73); Platelet Count 207 K/mm3 (150-400); RDW Standard Deviation 52.1 fL (35.1-46.3); Red Blood Cell Count 4.98 M/mm3 (4.30-5.90); White Blood Cell Count 8.15 K/mm3 (4.00-11.30)
[2021-04-17 23:43] LABS: Alanine Aminotransfer (ALT/SGP 26 U/L (12-78); Albumin, Blood 3.5 g/dL (3.4-5.0); Alk Phos 98 U/L (50-136); Anion Gap 10 mmol/L (6-16); Aspartate Aminotrans (AST/SGOT 20 U/L (12-37); Bilirubin, Total 0.2 mg/dL (0.1-1.0); Blood Urea Nitrogen 16 mg/dL (8-24); Bun/Creatinine Ratio 15.8 (12.0-20.0); CO2, Blood 25 mmol/L (21-32); Calcium, Blood 8.5 mg/dL (8.5-10.1); Chloride, Blood 109 mmol/L (98-108); Creatinine, Blood 1.01 mg/dL (0.60-1.20); Globulin, Blood 3.6 g/dL (2.2-4.0); Glomerular Filtration Rate >60 (60-); Glucose, Blood 105 mg/dL (70-99); Potassium, Blood 3.2 mmol/L (3.5-5.5); Sodium, Blood 144 mmol/L (136-145); Total Protein, Blood 7.1 g/dL (6.4-8.2); Troponin I <0.015 ng/mL (0.000-0.040)
[2021-04-18 02:14] LABS: Influenza A, PCR NEGATIVE (NEGATIVE); Influenza B, PCR NEGATIVE (NEGATIVE); Resp Syncytial Virus, PCR NEGATIVE (NEGATIVE); SARS-Cov-2 (COVID-19) PCR, MMC NEGATIVE (NEGATIVE)
[2021-04-18] MEDS ORDERED: TICA90TA PO (04:34)
[2021-04-18] MEDS ORDERED: AMLO5 PO (04:38)
--- NOTE | 2021-04-18 05:13 | NUR ---
PT TRANS. TO 211 FROM THE ED. PT A/OX4, VSS. BELONGINGS AT BEDSIDE. TELE/CONT PULSE OX ON PT. 6 BEAT RUN OF VTACH X1. PT ASYMPTOMATIC. HOME MEDS NOT ORDERED. WILL CALL HOUSE DOC TO GET THEM ORDERED. PT RESTING COMFORTABLY IN BED. WCTM
[2021-04-18 05:55] LABS: Anion Gap 13 mmol/L (6-16); Blood Urea Nitrogen 17 mg/dL (8-24); Bun/Creatinine Ratio 17.8 (12.0-20.0); CO2, Blood 23 mmol/L (21-32); Calcium, Blood 8.4 mg/dL (8.5-10.1); Chloride, Blood 109 mmol/L (98-108); Creatinine, Blood 0.96 mg/dL (0.60-1.20); Glomerular Filtration Rate >60 (60-); Glucose, Blood 115 mg/dL (70-99); Sodium, Blood 145 mmol/L (136-145)
--- NOTE | 2021-04-18 06:50 | NUR ---
JUAN ANTONIO KISER MADE AWARE OF 6 BEAT RUN OF VTACH AND LOW K. ORDERS FOR IV AND PO K+. GIVEN TO PT SEE MAR. ORDERS FOR MAG LEVEL WELL. WCPHILIP.
[2021-04-18 16:19] LABS: International Normalized Ratio 1.13; Prothrombin Time Results 11.8 Sec (9.7-11.5)
--- NOTE | 2021-04-18 17:16 | NUR ---
SHIFT SUMMARY: CHEST PAIN PATIENT IS ALERT AND ORIENTED X4 WHILE AWAKE THOUGH HAS BEEN ASLEEP FOR MOST OF THE SHIFT. HOWEVER, HE IS EASILY WOKEN UP WITH TOUCH. PATIENT HAS NOT HAD CHEST PAIN OR SOB DURING THE SHIFT. HE IS TOLERATING PO INTAKE AND IS VOIDING. CALL LIGHT WITHIN REACH. THE PLAN IS TO HAVE AN ANGIOGRAM ON WEDNESDAY AND WILL BE NPO AFTER MIDNIGHT ON WEDNESDAY.
--- NOTE | 2021-04-19 06:14 | NUR ---
VSS. TELE: SR. MAYNARD W/ WALKER THROUGHOUT HALLWAY X2. BANDAID TO L HAND CHANGED. BANDAID COVERING FACIAL ABRASION. POC ANGIOGRAM 04/20. DENIED CP THROUGHOUT SHIFT. NO ISSUES. WILL CONTINUE TO MONITOR
--- NOTE | 2021-04-19 10:52 | NUR ---
AM MEDICATIONS MORNING MEDICATIONS MANUALLY BARCODED DUE TO VHT CLOSING IN THE MIDDLE OF MED PASS. CRTT WITNESSED MORNING MEDICATIONS BE GIVEN AND MANUALLY ENTERED.
--- NOTE | 2021-04-19 18:01 | NUR ---
SHIFT SUMMARY PATIENT ALERT AND ORIENTED T/O SHIFT, USES CALL LIGHT APPROPRIATELY. VSS AND REMAINS ON ROOM AIR. AMBULATING IN ROOM INDEPENDENTLY. TELE IN PLACE, PATIENT DENIES CHEST PAIN OR PRESSURE. TOLERATING PO INTAKE WELL. NO OTHER SIGNIFICANT CHANGES TO PATIENT'S STATUS. WILL REPORT TO HEALTH INFORMATICS ADVISOR.
--- NOTE | 2021-04-20 06:20 | NUR ---
VSS. DENIES PAIN. NPO SINCE MIDNIGHT IN PREP FOR ANGIOGRAM 04/20. TELE: SR. MAYNARD IN HALLWAY X2. NO ISSUES OVERNIGHT. WILL CONTINUE TO [facility]
--- NOTE | 2021-04-20 08:36 | NUR ---
REPORT GIVEN TO DAVID [place] IN PCU WHERE PATIENT WILL GO AFTER ANGIOGRAM. PATIENT JUST LEFT FOR ANGIOGRAM VIA WHEELCHAIR.
--- NOTE | 2021-04-20 11:14 | NUR ---
PT ARRIVED FROM TUBER MACHINE OPERATOR HELPER VIA BED. REPORT RECEIVED FROM TUBER MACHINE OPERATOR HELPER RN. R GROIN SITE WITH PING PONG BALL SIZED HEMATOMA NOTED. TUBER MACHINE OPERATOR HELPER RN HELD PRESSURE X 10 MINS WITH MINIMAL BLEEDING NOTED. SITE REDRESSED BY TUBER MACHINE OPERATOR HELPER STAFF, MADELINE W/O HEMATOMA AFTER PRESSURE HELD X 20MINS. PT A&O X 4, VSS. PT REPORTS NO PAIN. ORDERS REVIEWED. CALL LIGHT IN REACH. PT VERBALIZES UNDERSTANDING OF FLAT TIME X 3 HRS PER ORDERS.
--- NOTE | 2021-04-20 11:15 | NUR ---
R GROIN SITE REMAINS SOFT W/0 BLEEDING OR HEMATOMA NOTED.
--- NOTE | 2021-04-20 11:30 | NUR ---
R GROIN SITE REMAINS SOFT, NO BLEEDING OR HEMATOMA NOTED.
--- NOTE | 2021-04-20 11:50 | NUR ---
R GROIN SITE REMAINS SOFT, SMALL AMOUNT OF BLOOD NOTED ON GAUZE UNDER TEGADERM DRESSING. REPORT GIVEN TO RAMAKRISHNA HERNANDEZ, WHO ASSUMES CARE AT THIS TIME.
--- NOTE | 2021-04-20 17:21 | NUR ---
SHIFT SUMMARY; ASSUMED CARE FROM HEART CENTER AT 1100. POST RIGHT GROIN ANGIO. SMALL AMOUNT OF OOZING AT SITE. DRESSING REMOVED BY HEART CENTER RN. SMALL AMOUNT OF BLOOD FROM SITE. PRESSURE APPLIED AND 2X2 PLACED WITH TEGADERM. LAYING FLAT ON BED. WILL CONTINUE TO MONITOR. VSS, 1330 INCREASE IN BLEEDING NOTED, NO HEMATOMA TO SITE. CHANGED DRESSING. DIRECT PRESSURE APPLIED FOR 15 MINS. THEN REPLACED WITH SANDBAG. CONTINUES TO LAY FLAT. 1500, NO NEW BLEEDING FROM GROIN, HOB ELEVATED TO 30 DEGREES. A/A/OX4 DURING SHIFT, MULTIPLE SKIN ABRASIONS FROM PREVIOUS FALL. NS STARTED PER ORDERS AT 100ML/HR. GROIN SITE DRESSING CONTINUES TO REMAIN DRY. WILL CONTINUE TO MONITOR AND TREAT UNTIL CHANGE OF SHIFT.
[2021-04-21 04:19] LABS: BASOPHILS ABSOLUTE AUTO 0.04 K/mm3 (0.00-0.23); BASOPHILS PERCENT AUTO 1 % (0-2); EOSINOPHILS ABSOLUTE AUTO 0.11 K/mm3 (0.00-0.68); EOSINOPHILS PERCENT AUTO 2 % (0-6); Hematocrit 44.3 % (37.0-53.0); Hemoglobin 14.5 g/dL (13.5-17.5); IMMATURE GRAN ABSOLUTE AUTO 0.02 K/mm3 (0.00-0.10); IMMATURE GRAN PERCENT AUTO 0 % (0-1); LYMPHOCYTES ABSOLUTE AUTO 0.63 K/mm3 (0.84-5.20); LYMPHOCYTES PERCENT AUTO 9 % (21-46); MONOCYTES ABSOLUTE AUTO 0.63 K/mm3 (0.16-1.47); MONOCYTES PERCENT AUTO 9 % (4-13); Mean Corpuscular HGB 30.9 pg (26.0-34.0); Mean Corpuscular HGB Conc 32.7 g/dL (31.5-36.5); Mean Corpuscular Volume 94 fL (80-100); Mean Platelet Volume 10.7 fL (9.1-12.4); NEUTROPHILS ABSOLUTE AUTO 5.45 K/mm3 (1.96-9.15); NEUTROPHILS PERCENT AUTO 79 % (41-73); Platelet Count 163 K/mm3 (150-400); RDW Coefficient Variation 14.8 % (11.7-14.2); RDW Standard Deviation 51.3 fL (35.1-46.3); White Blood Cell Count 6.88 K/mm3 (4.00-11.30)
[2021-04-21 04:43] LABS: Anion Gap 7 mmol/L (6-16); Blood Urea Nitrogen 10 mg/dL (8-24); Bun/Creatinine Ratio 11.5 (12.0-20.0); CO2, Blood 26 mmol/L (21-32); Calcium, Blood 9.1 mg/dL (8.5-10.1); Chloride, Blood 109 mmol/L (98-108); Creatinine, Blood 0.87 mg/dL (0.60-1.20); Glomerular Filtration Rate >60 (60-); Glucose, Blood 103 mg/dL (70-99); Magnesium, Blood 1.8 mg/dL (1.6-2.4); Potassium, Blood 4.2 mmol/L (3.5-5.5); Sodium, Blood 142 mmol/L (136-145)
--- NOTE | 2021-04-21 05:48 | NUR ---
SHIFT SUMMARY PATIENT A&OX4 AND PLESANT WITH CARE. VSS. ON TELE SR/SB IN THE 50'S-60'S. NO CP NOTED. RIGHT GROIN CATH SITE WITHOUT SIGNS OF BLEEDING OR HEMATOMA. SCANT SEROSANG OLD DRAINAGE. NO PAIN TO SITE. UP IND IN ROOM WITH BATHROOM PRIVLEDGES. TOLERATING CARDIAC DIET WITHOUT ISSUE. VOIDING WELL PER URINAL OR IN BATHROOM. NO ACUTE CONCERNS AT THIS TIME. WILL CONTINUE PLAN OF CARE UNTIL REPORT GIVEN TO DAYSKASI RN.
[2021-04-21] MEDS ORDERED: CLOP75 PO (11:27)
[2021-04-21] MEDS ORDERED: HYDCHL25 PO (11:28)
[2021-04-21] MEDS ORDERED: LOSA50 PO (11:29)
[2021-04-21] MEDS ORDERED: SPIR25 PO (11:30)
== END 2021-04-21 12:23 | disposition home or self-care (01) | DRG 250 ==
LOC: ER 21:52 → SURS 21:53 → PCU 04-20 10:27
PROVIDERS: Emergency Medicine; Family Medicine; Internal Medicine; Internal Medicine Cardiovascular Disease; ADMIT Internal Medicine
PROC: 02713ZZ Dilation of Coronary Artery, Two Arteries, Percutaneous Approach (ICD-10-PCS; principal; 2021-04-20)
PROC: B2101ZZ Fluoroscopy of Single Coronary Artery using Low Osmolar Contrast (ICD-10-PCS; 2021-04-20)
DX: T82.855A Stenosis of coronary artery stent, initial encounter (principal); I21.A9 Other myocardial infarction type; I21.4 Non-ST elevation (NSTEMI) myocardial infarction; I50.22 Chronic systolic (congestive) heart failure; I73.9 Peripheral vascular disease, unspecified; Z20.822 Contact with and (suspected) exposure to COVID-19; Z98.890 Other specified postprocedural states; Z95.820 Peripheral vascular angioplasty status with implants and grafts; F17.210 Nicotine dependence, cigarettes, uncomplicated; Z79.899 Other long term (current) drug therapy; I25.2 Old myocardial infarction; E78.5 Hyperlipidemia, unspecified; S02.2XXA Fracture of nasal bones, initial encounter for closed fracture; W18.30XA Fall on same level, unspecified, initial encounter; I25.5 Ischemic cardiomyopathy; Z59.02 Unsheltered homelessness; I25.119 Atherosclerotic heart disease of native coronary artery with unspecified angina pectoris; E87.6 Hypokalemia; E78.00 Pure hypercholesterolemia, unspecified
CPT/HCPCS: 0241U; 36415; 70450; 70486; 71045; 73120; 73562-RT; 76937; 80048; 80053; 83735; 84484; 85025; 85347; 85610; 86850; 86900; 86901; 92920; 92921; 93005; 93010; 93454; 94762; 99152; 99153; 99285-25; A9270; C1725; C1760; C1769; C1887; C1894; G0378; J0461; J1644; J2250; J2370; J3010; J3480; J7030; J7050; Q9967

== ENCOUNTER 2021-06-05 08:38 | Inpatient (IN) | payer OTHER ==
[~2021-06-05] VITALS: Ht 177.8 cm; Wt 95.0 kg
[~2021-06-05 08:38] MED LIST changes: +AMLO5 PO; +HYDCHL25 PO; +LOSA50 PO; +SPIR25 PO
[2021-06-05 12:21] LABS: BASOPHILS ABSOLUTE AUTO 0.05 K/mm3 (0.00-0.23); BASOPHILS PERCENT AUTO 1 % (0-2); EOSINOPHILS ABSOLUTE AUTO 0.06 K/mm3 (0.00-0.68); EOSINOPHILS PERCENT AUTO 1 % (0-6); Hematocrit 43.4 % (37.0-53.0); Hemoglobin 13.7 g/dL (13.5-17.5); IMMATURE GRAN ABSOLUTE AUTO 0.04 K/mm3 (0.00-0.10); IMMATURE GRAN PERCENT AUTO 0 % (0-1); LYMPHOCYTES ABSOLUTE AUTO 0.96 K/mm3 (0.84-5.20); LYMPHOCYTES PERCENT AUTO 10 % (21-46); MONOCYTES PERCENT AUTO 13 % (4-13); Mean Corpuscular HGB 30.2 pg (26.0-34.0); Mean Corpuscular HGB Conc 31.6 g/dL (31.5-36.5); Mean Corpuscular Volume 96 fL (80-100); Mean Platelet Volume 11.2 fL (9.1-12.4); NEUTROPHILS ABSOLUTE AUTO 7.69 K/mm3 (1.96-9.15); NEUTROPHILS PERCENT AUTO 76 % (41-73); Platelet Count 306 K/mm3 (150-400); RDW Coefficient Variation 15.3 % (11.7-14.2); Red Blood Cell Count 4.54 M/mm3 (4.30-5.90)
[2021-06-05 12:39] LABS: Alanine Aminotransfer (ALT/SGP 13 U/L (12-78); Albumin, Blood 3.2 g/dL (3.4-5.0); Albumin/Globulin Ratio 0.8 (0.8-1.8); Alk Phos 149 U/L (50-136); Anion Gap 5 mmol/L (6-16); Aspartate Aminotrans (AST/SGOT 15 U/L (12-37); Bilirubin, Total 0.6 mg/dL (0.1-1.0); Blood Urea Nitrogen 13 mg/dL (8-24); Bun/Creatinine Ratio 11.8 (12.0-20.0); CO2, Blood 29 mmol/L (21-32); Calcium, Blood 9.4 mg/dL (8.5-10.1); Chloride, Blood 107 mmol/L (98-108); Globulin, Blood 4.2 g/dL (2.2-4.0); Glomerular Filtration Rate >60 (60-); Glucose, Blood 98 mg/dL (70-99); Potassium, Blood 3.9 mmol/L (3.5-5.5); Sodium, Blood 141 mmol/L (136-145); Total Protein, Blood 7.4 g/dL (6.4-8.2)
[2021-06-05 13:09] LABS: International Normalized Ratio 1.09; Prothrombin Time Results 11.4 Sec (9.7-11.5)
[2021-06-05 17:33] LABS: Influenza A, PCR NEGATIVE (NEGATIVE); Influenza B, PCR NEGATIVE (NEGATIVE); Resp Syncytial Virus, PCR NEGATIVE (NEGATIVE); SARS-Cov-2 (COVID-19) PCR, MMC NEGATIVE (NEGATIVE)
--- NOTE | 2021-06-05 17:59 | NUR ---
CALLED DR ALFORD AND REQUESTED A NICOTIENE PATCH FOR THE PT. PT STATED HIS LAST SSMOKKE WAS 3 WEEKS AGO TODAY WELL HIS LAST DRINK. RECIEVED AN ORDER FOR 21MG NICOTIENE PATCH.
--- NOTE | 2021-06-05 18:47 | NUR ---
SHIFT SUMMARY- PT ADMITTED THROUGH THE ED FOR OSTEOMYOLITIS, RIGHT LOWER VENOUS DUPLEX DONE IN ED RESULTS SHOW MULTIPLE DVT'S AND ONE SVT. PT ON HEPARIN DRIP AT THIS TIME DOSE CONFIRMED WITH PHARMACY UPON PT ARRIVAL TO MEDICAL FLOOR. DR CRISTOBAL CAME TO SEE THE PT, HE MAY OR MAY NOT TAKE THE PT FOR A PROCEDURE IN THE LINE CAMERA OPERATOR IN THE MORNING, PT TO BE NPO AT MIDNIGHT FOR POSSIBLE PROCEDURE TOMORROW. PROVIDER CONSULT FOR DR GARCIA WAS CALLED TO HIS CELL PHONE, SPOKE TO HE WILL SEE THE PT IN THE MORNING. PT HAS NO PAPABLE PULSE IN THE RLE HOWEVER HAS GOOD CAP REFILL. RLE RED AND HOT TO THE TOUCH. CALLED DR ALFORD AFTER PT ARRIVED AND REQUESTED TELE, D/T BLOOD CLOTS AND Hx. PT ON TELE RUNNING NSR AT 80 WHEN THE TELE WAS PLACED.
--- NOTE | 2021-06-06 04:37 | NUR ---
SHIFT SUMMARY NO ACUTE CHANGES TO REPORT THIS SHIFT. PT MEDICATED FOR R FOOT PAIN WITH TYLENOL WITH AFFECT. PT HAS SLEPT MOST OF THE NIGHT. HEPARIN GTT INFUSING PER ORDERS WITH A RATE INCREASE THIS SHIFT. PLAN IS FOR POSSIBLE PROCEDURE ON RIGHT FOOT THIS SHIFT D/T OSTEOMYELITIS. PT NPO. BEDREST, USING URINAL WHILE IN BED. VITALS STABLE. RESTFUL NIGHT OVERALL. BED IN LOWEST POSITION, CALL LIGHT WITHIN REACH.
[2021-06-06 06:12] LABS: BASOPHILS ABSOLUTE AUTO 0.05 K/mm3 (0.00-0.23); BASOPHILS PERCENT AUTO 1 % (0-2); EOSINOPHILS ABSOLUTE AUTO 0.08 K/mm3 (0.00-0.68); EOSINOPHILS PERCENT AUTO 1 % (0-6); Hematocrit 39.2 % (37.0-53.0); Hemoglobin 12.7 g/dL (13.5-17.5); IMMATURE GRAN ABSOLUTE AUTO 0.03 K/mm3 (0.00-0.10); IMMATURE GRAN PERCENT AUTO 0 % (0-1); LYMPHOCYTES ABSOLUTE AUTO 0.72 K/mm3 (0.84-5.20); LYMPHOCYTES PERCENT AUTO 10 % (21-46); MONOCYTES ABSOLUTE AUTO 0.71 K/mm3 (0.16-1.47); MONOCYTES PERCENT AUTO 10 % (4-13); Mean Corpuscular HGB 30.2 pg (26.0-34.0); Mean Corpuscular HGB Conc 32.4 g/dL (31.5-36.5); Mean Corpuscular Volume 93 fL (80-100); Mean Platelet Volume 10.8 fL (9.1-12.4); NEUTROPHILS PERCENT AUTO 79 % (41-73); Platelet Count 224 K/mm3 (150-400); RDW Coefficient Variation 15.3 % (11.7-14.2); RDW Standard Deviation 51.9 fL (35.1-46.3); Red Blood Cell Count 4.21 M/mm3 (4.30-5.90); White Blood Cell Count 7.39 K/mm3 (4.00-11.30)
[2021-06-06 06:41] LABS: Alanine Aminotransfer (ALT/SGP 8 U/L (12-78); Albumin, Blood 2.8 g/dL (3.4-5.0); Albumin/Globulin Ratio 0.9 (0.8-1.8); Alk Phos 127 U/L (50-136); Anion Gap 7 mmol/L (6-16); Aspartate Aminotrans (AST/SGOT 10 U/L (12-37); Bilirubin, Total 0.5 mg/dL (0.1-1.0); Blood Urea Nitrogen 11 mg/dL (8-24); Bun/Creatinine Ratio 11.9 (12.0-20.0); CO2, Blood 25 mmol/L (21-32); Calcium, Blood 8.3 mg/dL (8.5-10.1); Chloride, Blood 110 mmol/L (98-108); Creatinine, Blood 0.92 mg/dL (0.60-1.20); Globulin, Blood 3.1 g/dL (2.2-4.0); Glomerular Filtration Rate >60 (60-); Glucose, Blood 101 mg/dL (70-99); Potassium, Blood 3.8 mmol/L (3.5-5.5); Sodium, Blood 142 mmol/L (136-145); Total Protein, Blood 5.9 g/dL (6.4-8.2)
--- NOTE | 2021-06-06 10:49 | NUR ---
CALLED DR. CRISTOBAL' CELL PHONE AND LEFT A MESSAGE ASKING IF HE PLANS ON THE ANGIOGRAPHY AND REVASCULARIZATION TODAY.
[2021-06-07 04:26] LABS: BASOPHILS ABSOLUTE AUTO 0.03 K/mm3 (0.00-0.23); BASOPHILS PERCENT AUTO 1 % (0-2); EOSINOPHILS ABSOLUTE AUTO 0.07 K/mm3 (0.00-0.68); EOSINOPHILS PERCENT AUTO 1 % (0-6); Hematocrit 39.8 % (37.0-53.0); Hemoglobin 12.9 g/dL (13.5-17.5); IMMATURE GRAN ABSOLUTE AUTO 0.02 K/mm3 (0.00-0.10); IMMATURE GRAN PERCENT AUTO 0 % (0-1); LYMPHOCYTES ABSOLUTE AUTO 0.93 K/mm3 (0.84-5.20); LYMPHOCYTES PERCENT AUTO 16 % (21-46); MONOCYTES ABSOLUTE AUTO 0.59 K/mm3 (0.16-1.47); MONOCYTES PERCENT AUTO 10 % (4-13); Mean Corpuscular HGB 30.2 pg (26.0-34.0); Mean Corpuscular HGB Conc 32.4 g/dL (31.5-36.5); Mean Corpuscular Volume 93 fL (80-100); Mean Platelet Volume 10.9 fL (9.1-12.4); NEUTROPHILS ABSOLUTE AUTO 4.05 K/mm3 (1.96-9.15); NEUTROPHILS PERCENT AUTO 71 % (41-73); Platelet Count 240 K/mm3 (150-400); RDW Standard Deviation 51.5 fL (35.1-46.3); Red Blood Cell Count 4.27 M/mm3 (4.30-5.90); White Blood Cell Count 5.69 K/mm3 (4.00-11.30)
[2021-06-07 04:41] LABS: Anion Gap 5 mmol/L (6-16); Blood Urea Nitrogen 10 mg/dL (8-24); CO2, Blood 25 mmol/L (21-32); Calcium, Blood 8.6 mg/dL (8.5-10.1); Chloride, Blood 112 mmol/L (98-108); Creatinine, Blood 0.91 mg/dL (0.60-1.20); Glomerular Filtration Rate >60 (60-); Glucose, Blood 100 mg/dL (70-99); Potassium, Blood 3.7 mmol/L (3.5-5.5); Sodium, Blood 142 mmol/L (136-145)
--- NOTE | 2021-06-07 05:41 | NUR ---
SHIFT SUMMARY A&OX4, CHRONIC NUMBNESS, TELE = NSR 60-70S, LCTA E/U RESP, BOWEL TONES ACTIVE X4 QUAD, RIGHT LATERAL FOOT WOUND REDRESSED AT PATIENT REQUEST, HE DOES NOT LIKE IT WRAPPED, PLACED ISLAND DRESSING. PATIENT WITH NOCTURIA EXPRESSED "BLADDER DISCOMFORT" NO COMPLAINTS OF PAIN OR NEED FOR PHARMALOGICAL INTERVENTIONS. HEP GTT TITRATED PER PHARMACY ORDERS, STOPPED AT 0230 FOR PROCEDURE TODAY. PATIENT HAS BEEN NPO SINCE MIDNIGT. AMBULATES TO BATHROOM WITH USE OF FWW, SBA FOR SAFETY. NO SIGNIFCANT EVENTS OVERNIGHT.
--- NOTE | 2021-06-07 07:30 | NUR ---
pt laying in bed awake a/ox3, pleasant and cooperative with care, follows commands well, states pain is ok right now, is going to have an amputation this am, keep npo after mid, will give essential meds with sip of water, lungs are clear a bit dim in bases, resp even and unlabored, on r/a, no cough noted at this time, hrr, tele in place running sr per monitor, see strip, no edema noted, iv x3 to l wrist and l ac, s.l. btx4, abd flat soft nontender, voids without diff, skin has dark lower ext, dressing on right foot, maew, tata, call light in reach.
--- NOTE | 2021-06-07 08:26 | NUR ---
pt left for surgery via bed.
--- NOTE | 2021-06-07 09:12 | NUR ---
06/07/21 0912 Josh Plascencia PT ON SCHEDULED ANTIBIOTICS CONFIRMED WITH DR GARCIA.
--- NOTE | 2021-06-07 10:10 | NUR ---
Pt returned to room post op, v.s. stable, he is awake and alert, able to make his needs known. has a bulky dressing to right foot, will place wound vac tomorrow per report. will continue to monitor v.s per protocol, and get him something to eat. call light in reach.
[2021-06-07 16:47] LABS: Vancomycin, Trough 16.3 ug/mL (5.0-10.0)
--- NOTE | 2021-06-07 18:28 | NUR ---
pt had surgery today with the amputation of a digit, consult called in to Dr. Mckay answering service, pt denies complaints, states no pain, new iv placed to rfa with good blood return, no further changes this shift, call light in reach.
[2021-06-08 02:03] LABS: BASOPHILS ABSOLUTE AUTO 0.04 K/mm3 (0.00-0.23); BASOPHILS PERCENT AUTO 1 % (0-2); EOSINOPHILS ABSOLUTE AUTO 0.08 K/mm3 (0.00-0.68); EOSINOPHILS PERCENT AUTO 1 % (0-6); Hematocrit 39.6 % (37.0-53.0); Hemoglobin 12.9 g/dL (13.5-17.5); IMMATURE GRAN ABSOLUTE AUTO 0.04 K/mm3 (0.00-0.10); IMMATURE GRAN PERCENT AUTO 1 % (0-1); LYMPHOCYTES ABSOLUTE AUTO 1.03 K/mm3 (0.84-5.20); LYMPHOCYTES PERCENT AUTO 15 % (21-46); MONOCYTES ABSOLUTE AUTO 0.73 K/mm3 (0.16-1.47); MONOCYTES PERCENT AUTO 10 % (4-13); Mean Corpuscular HGB 30.5 pg (26.0-34.0); Mean Corpuscular HGB Conc 32.6 g/dL (31.5-36.5); Mean Corpuscular Volume 94 fL (80-100); Mean Platelet Volume 10.7 fL (9.1-12.4); NEUTROPHILS ABSOLUTE AUTO 5.12 K/mm3 (1.96-9.15); NEUTROPHILS PERCENT AUTO 73 % (41-73); Platelet Count 224 K/mm3 (150-400); RDW Standard Deviation 52.1 fL (35.1-46.3); Red Blood Cell Count 4.23 M/mm3 (4.30-5.90); White Blood Cell Count 7.04 K/mm3 (4.00-11.30)
[2021-06-08 02:36] LABS: Alanine Aminotransfer (ALT/SGP 12 U/L (12-78); Albumin, Blood 2.7 g/dL (3.4-5.0); Albumin/Globulin Ratio 0.9 (0.8-1.8); Alk Phos 116 U/L (50-136); Anion Gap 10 mmol/L (6-16); Aspartate Aminotrans (AST/SGOT 14 U/L (12-37); Bilirubin, Total 0.3 mg/dL (0.1-1.0); Blood Urea Nitrogen 11 mg/dL (8-24); Bun/Creatinine Ratio 11.3 (12.0-20.0); CO2, Blood 25 mmol/L (21-32); Calcium, Blood 8.1 mg/dL (8.5-10.1); Chloride, Blood 109 mmol/L (98-108); Creatinine, Blood 0.97 mg/dL (0.60-1.20); Globulin, Blood 3.1 g/dL (2.2-4.0); Glomerular Filtration Rate >60 (60-); Glucose, Blood 117 mg/dL (70-99); Sodium, Blood 144 mmol/L (136-145); Total Protein, Blood 5.8 g/dL (6.4-8.2)
--- NOTE | 2021-06-08 05:40 | NUR ---
SHIFT SUMMARY: PATIENT WITH INCREASING PAIN DESPITE ELEVATION AND AVAIALBLE PRN MEDICATION. MD CONTACTED AND NEW ORDER OF FENTANYL RECEIEVED. PATIENT REPORTS ADEQAUTE RELEIF AND ABLE TO FALL ASLEEP. PATIENT DESRICBED PAIN INTENSE PRESSURE AND SHOOTING PAIN. CAP REFILL > 2 ON RIGHT FOOT. HEP GTT ADJUSTED PER EMAR.
--- NOTE | 2021-06-08 08:00 | NUR ---
pt laying in bed awake a/ox3, pleasant and cooperative with care, follows commands well, states he had a rought night last night, his block wore off nad had a lot of pain, otherwise, is doing ok, cap refill <3 sec, on right foot, eating breakfast, takes po meds without diff, call light in reach.
--- NOTE | 2021-06-08 18:32 | NUR ---
pt slept about half of the day, states the extra lyrica is helping the pain, got up to bsc, no acute changes this shift. call light in reach.
[2021-06-09 03:57] LABS: BASOPHILS ABSOLUTE AUTO 0.04 K/mm3 (0.00-0.23); BASOPHILS PERCENT AUTO 1 % (0-2); EOSINOPHILS ABSOLUTE AUTO 0.13 K/mm3 (0.00-0.68); EOSINOPHILS PERCENT AUTO 2 % (0-6); Hemoglobin 12.2 g/dL (13.5-17.5); IMMATURE GRAN ABSOLUTE AUTO 0.03 K/mm3 (0.00-0.10); IMMATURE GRAN PERCENT AUTO 1 % (0-1); LYMPHOCYTES ABSOLUTE AUTO 0.97 K/mm3 (0.84-5.20); LYMPHOCYTES PERCENT AUTO 15 % (21-46); MONOCYTES ABSOLUTE AUTO 0.74 K/mm3 (0.16-1.47); MONOCYTES PERCENT AUTO 11 % (4-13); Mean Corpuscular HGB 30.4 pg (26.0-34.0); Mean Corpuscular Volume 92 fL (80-100); Mean Platelet Volume 10.2 fL (9.1-12.4); NEUTROPHILS ABSOLUTE AUTO 4.72 K/mm3 (1.96-9.15); NEUTROPHILS PERCENT AUTO 71 % (41-73); Platelet Count 211 K/mm3 (150-400); RDW Coefficient Variation 14.9 % (11.7-14.2); RDW Standard Deviation 50.9 fL (35.1-46.3); Red Blood Cell Count 4.01 M/mm3 (4.30-5.90); White Blood Cell Count 6.63 K/mm3 (4.00-11.30)
[2021-06-09 04:13] LABS: Alanine Aminotransfer (ALT/SGP 13 U/L (12-78); Albumin, Blood 2.6 g/dL (3.4-5.0); Albumin/Globulin Ratio 0.7 (0.8-1.8); Alk Phos 111 U/L (50-136); Anion Gap 6 mmol/L (6-16); Aspartate Aminotrans (AST/SGOT 13 U/L (12-37); Bilirubin, Total 0.3 mg/dL (0.1-1.0); Blood Urea Nitrogen 10 mg/dL (8-24); Bun/Creatinine Ratio 10.9 (12.0-20.0); CO2, Blood 26 mmol/L (21-32); Calcium, Blood 8.6 mg/dL (8.5-10.1); Chloride, Blood 109 mmol/L (98-108); Creatinine, Blood 0.92 mg/dL (0.60-1.20); Globulin, Blood 3.7 g/dL (2.2-4.0); Glomerular Filtration Rate >60 (60-); Glucose, Blood 117 mg/dL (70-99); Potassium, Blood 3.9 mmol/L (3.5-5.5); Sodium, Blood 141 mmol/L (136-145); Total Protein, Blood 6.3 g/dL (6.4-8.2)
--- NOTE | 2021-06-09 18:59 | NUR ---
PATIENT IS ALERT AND ORIENTED AND COOPERATIVE WITH CARE. WORKED WITH PT/OT TODAY. DR. STEVENSON SAW THE PATIENT TODAY. DRESSING CHANGED ON RIGHT FOOT. THE PACKING WAS NOT REMOVED OR CHANGED. DR. GARCIA DID NOT COME BY TO SEE THE PATIENT THIS SHIFT. NO ACUTE CHANGES. WILL CONTINUE TO MONITOR
[2021-06-10 04:55] LABS: BASOPHILS ABSOLUTE AUTO 0.04 K/mm3 (0.00-0.23); BASOPHILS PERCENT AUTO 1 % (0-2); EOSINOPHILS ABSOLUTE AUTO 0.14 K/mm3 (0.00-0.68); EOSINOPHILS PERCENT AUTO 2 % (0-6); Hematocrit 37.7 % (37.0-53.0); IMMATURE GRAN ABSOLUTE AUTO 0.03 K/mm3 (0.00-0.10); IMMATURE GRAN PERCENT AUTO 1 % (0-1); LYMPHOCYTES ABSOLUTE AUTO 0.92 K/mm3 (0.84-5.20); LYMPHOCYTES PERCENT AUTO 15 % (21-46); MONOCYTES ABSOLUTE AUTO 0.93 K/mm3 (0.16-1.47); MONOCYTES PERCENT AUTO 15 % (4-13); Mean Corpuscular HGB 29.7 pg (26.0-34.0); Mean Corpuscular HGB Conc 31.8 g/dL (31.5-36.5); Mean Corpuscular Volume 93 fL (80-100); Mean Platelet Volume 10.5 fL (9.1-12.4); NEUTROPHILS ABSOLUTE AUTO 4.07 K/mm3 (1.96-9.15); NEUTROPHILS PERCENT AUTO 66 % (41-73); Platelet Count 213 K/mm3 (150-400); RDW Coefficient Variation 14.8 % (11.7-14.2); RDW Standard Deviation 50.9 fL (35.1-46.3); Red Blood Cell Count 4.04 M/mm3 (4.30-5.90); White Blood Cell Count 6.13 K/mm3 (4.00-11.30)
--- NOTE | 2021-06-10 04:58 | NUR ---
Patient easy going, tolerate care. No acute changes. He continue to receive Vanco. Did a round in his wheelchair tonight and went back to sleep. Code light within reach. We are monitoring.
[2021-06-10 05:20] LABS: Alanine Aminotransfer (ALT/SGP 12 U/L (12-78); Albumin, Blood 2.6 g/dL (3.4-5.0); Albumin/Globulin Ratio 0.7 (0.8-1.8); Alk Phos 105 U/L (50-136); Anion Gap 5 mmol/L (6-16); Aspartate Aminotrans (AST/SGOT 14 U/L (12-37); Bilirubin, Total 0.3 mg/dL (0.1-1.0); Blood Urea Nitrogen 10 mg/dL (8-24); Bun/Creatinine Ratio 10.7 (12.0-20.0); CO2, Blood 26 mmol/L (21-32); Calcium, Blood 8.5 mg/dL (8.5-10.1); Chloride, Blood 112 mmol/L (98-108); Creatinine, Blood 0.93 mg/dL (0.60-1.20); Globulin, Blood 3.6 g/dL (2.2-4.0); Glomerular Filtration Rate >60 (60-); Glucose, Blood 107 mg/dL (70-99); Magnesium, Blood 2.2 mg/dL (1.6-2.4); Potassium, Blood 3.6 mmol/L (3.5-5.5); Sodium, Blood 143 mmol/L (136-145); Total Protein, Blood 6.2 g/dL (6.4-8.2)
[2021-06-10 16:32] LABS: Vancomycin, Trough 17.2 ug/mL (5.0-10.0)
--- NOTE | 2021-06-10 17:56 | NUR ---
SHIFT SUMMARY PICC LINE PLACED TODAY. CLEARED THERAPY. UP IND IN ROOM. SPOKE w/ DR GARCIA VIA TELEPHONE; OK FOR DC. PLAN FOR DC TOMORROW.
[2021-06-11 07:55] LABS: BASOPHILS ABSOLUTE AUTO 0.03 K/mm3 (0.00-0.23); BASOPHILS PERCENT AUTO 1 % (0-2); EOSINOPHILS ABSOLUTE AUTO 0.14 K/mm3 (0.00-0.68); EOSINOPHILS PERCENT AUTO 3 % (0-6); Hematocrit 38.7 % (37.0-53.0); Hemoglobin 12.4 g/dL (13.5-17.5); IMMATURE GRAN ABSOLUTE AUTO 0.02 K/mm3 (0.00-0.10); IMMATURE GRAN PERCENT AUTO 0 % (0-1); LYMPHOCYTES ABSOLUTE AUTO 0.99 K/mm3 (0.84-5.20); LYMPHOCYTES PERCENT AUTO 18 % (21-46); MONOCYTES ABSOLUTE AUTO 0.56 K/mm3 (0.16-1.47); MONOCYTES PERCENT AUTO 10 % (4-13); Mean Corpuscular HGB 30.1 pg (26.0-34.0); Mean Corpuscular Volume 94 fL (80-100); Mean Platelet Volume 10.5 fL (9.1-12.4); NEUTROPHILS ABSOLUTE AUTO 3.66 K/mm3 (1.96-9.15); NEUTROPHILS PERCENT AUTO 68 % (41-73); Platelet Count 200 K/mm3 (150-400); RDW Coefficient Variation 14.9 % (11.7-14.2); RDW Standard Deviation 51.4 fL (35.1-46.3); Red Blood Cell Count 4.12 M/mm3 (4.30-5.90)
[2021-06-11 08:07] LABS: Anion Gap 6 mmol/L (6-16); Blood Urea Nitrogen 13 mg/dL (8-24); Bun/Creatinine Ratio 14.5 (12.0-20.0); CO2, Blood 26 mmol/L (21-32); Calcium, Blood 8.6 mg/dL (8.5-10.1); Chloride, Blood 111 mmol/L (98-108); Glomerular Filtration Rate >60 (60-); Glucose, Blood 98 mg/dL (70-99); Sodium, Blood 143 mmol/L (136-145)
[2021-06-11] MEDS ORDERED: LYRICA150 M1 PO (13:20)
[2021-06-11] MEDS ORDERED: ASPI81CH PO (13:22)
[2021-06-11] MEDS ORDERED: AMOCLA875 PO (13:22)
[2021-06-11] MEDS ORDERED: NICO21TP TOP (13:23)
[2021-06-11] MEDS ORDERED: ELIQUIS5 M3 PO (13:23)
[2021-06-11] MEDS ORDERED: VANCOMYCIN HCL1 G1 IV (13:25)
[2021-06-11] MEDS ORDERED: VISBIOME 112.51 EACH PO (13:25)
[2021-06-11] MEDS ORDERED: TRAM50 PO (13:28)
[2021-06-11] MEDS ORDERED: ELIQUIS5 M7 PO (13:29)
== END 2021-06-11 16:09 | disposition home health service (06) | DRG 475 ==
LOC: ER 08:38 → ERHOLD 14:37 → MEDS 14:37 → EDBEDREQ 14:55 → MEDS 16:35 → ENPENDDIS 06-11 11:33 → MEDS 06-11 16:09
PROVIDERS: Emergency Medicine; Family Medicine; Nurse Practitioner Acute Care; Pharmacist; Podiatrist; ADMIT Internal Medicine
PROC: 0Y6M0ZF Detachment at Right Foot, Partial 5th Ray, Open Approach (ICD-10-PCS; principal; 2021-06-07 08:30)
DX: M86.171 Other acute osteomyelitis, right ankle and foot (principal); I50.22 Chronic systolic (congestive) heart failure; I96 Gangrene, not elsewhere classified; I82.411 Acute embolism and thrombosis of right femoral vein; I82.431 Acute embolism and thrombosis of right popliteal vein; Z20.822 Contact with and (suspected) exposure to COVID-19; B95.62 Methicillin resistant Staphylococcus aureus infection as the cause of diseases classified elsewhere; L97.514 Non-pressure chronic ulcer of other part of right foot with necrosis of bone; I25.10 Atherosclerotic heart disease of native coronary artery without angina pectoris; I11.0 Hypertensive heart disease with heart failure; E78.5 Hyperlipidemia, unspecified; I25.2 Old myocardial infarction; I73.9 Peripheral vascular disease, unspecified; F17.210 Nicotine dependence, cigarettes, uncomplicated; Z79.899 Other long term (current) drug therapy; Z79.01 Long term (current) use of anticoagulants; Z95.5 Presence of coronary angioplasty implant and graft; Z98.890 Other specified postprocedural states
CPT/HCPCS: 0241U; 36415; 36569; 73630; 75635; 80048; 80053; 80202; 83735; 85025; 85610; 85651; 85730; 86140; 87040; 87070; 87071; 87075; 87077; 87185; 87186; 87205; 88305; 88311; 93922; 93971; 96365-59; 96375-59; 96376-59; 97110; 97161; 97165; 97530; 97535; 99285-25; A9270; C1751; C9113; J0295; J0696; J1644; J2250; J2370; J2405; J2704; J3010; J3370; J7030; J7050; Q9967

== ENCOUNTER 2021-06-12 02:12 | Day surgery (SDC) | payer OTHER, MEDICARE ==
[~2021-06-12 02:12] MED LIST changes: +AMOCLA875 PO; +ELIQUIS5 M3 PO; +ELIQUIS5 M7 PO; +LYRICA150 M1 PO; +TRAM50 PO; +VANCOMYCIN HCL1 G1 IV; +VISBIOME 112.51 EACH PO
== END 2021-06-12 15:40 | disposition home or self-care (01) ==
LOC: ATC 02:12
DX: M86.9 Osteomyelitis, unspecified (principal); I25.10 Atherosclerotic heart disease of native coronary artery without angina pectoris; I73.9 Peripheral vascular disease, unspecified; I11.0 Hypertensive heart disease with heart failure; I50.22 Chronic systolic (congestive) heart failure; E78.5 Hyperlipidemia, unspecified; Z87.891 Personal history of nicotine dependence; Z95.5 Presence of coronary angioplasty implant and graft; Z95.820 Peripheral vascular angioplasty status with implants and grafts; Z86.718 Personal history of other venous thrombosis and embolism
CPT/HCPCS: 80202; 82565; 96365; 96366; J3370; J7050

== ENCOUNTER 2021-06-13 00:09 | Day surgery (SDC) | payer OTHER, MEDICARE ==
[2021-06-13 10:53] LABS: Creatinine, Blood 0.92 mg/dL (0.60-1.20); Glomerular Filtration Rate >60 (60-); Vancomycin, Trough 16.6 ug/mL (5.0-10.0)
== END 2021-06-13 13:10 | disposition home or self-care (01) ==
LOC: ATC 00:09
PROVIDERS: Internal Medicine
DX: M86.9 Osteomyelitis, unspecified (principal)
CPT/HCPCS: 80202; 82565; 96365; 96366; J3370; J7050

== ENCOUNTER 2021-06-14 03:58 | Day surgery (SDC) | payer OTHER, MEDICARE | END 2021-06-14 15:25 | disposition home or self-care (01) | LOC: ATC 03:58 | DX: M86.9 Osteomyelitis, unspecified (principal); L97.514 Non-pressure chronic ulcer of other part of right foot with necrosis of bone; I25.10 Atherosclerotic heart disease of native coronary artery without angina pectoris; I11.0 Hypertensive heart disease with heart failure; I50.22 Chronic systolic (congestive) heart failure; I10 Essential (primary) hypertension; E78.5 Hyperlipidemia, unspecified; I73.9 Peripheral vascular disease, unspecified; Z87.891 Personal history of nicotine dependence; Z86.718 Personal history of other venous thrombosis and embolism; Z95.5 Presence of coronary angioplasty implant and graft; Z95.820 Peripheral vascular angioplasty status with implants and grafts | CPT/HCPCS: 96365; 96366; J3370; J7050 ==

== ENCOUNTER 2021-06-15 03:07 | Day surgery (SDC) | payer OTHER, MEDICARE | END 2021-06-15 15:00 | disposition home or self-care (01) | LOC: ATC 03:07 | DX: M86.9 Osteomyelitis, unspecified (principal); I25.10 Atherosclerotic heart disease of native coronary artery without angina pectoris; E78.5 Hyperlipidemia, unspecified; I11.0 Hypertensive heart disease with heart failure; I50.22 Chronic systolic (congestive) heart failure; Z87.891 Personal history of nicotine dependence | CPT/HCPCS: 96365; 96366; J3370; J7050 ==

== ENCOUNTER 2021-06-16 02:26 | Day surgery (SDC) | payer OTHER, MEDICARE ==
--- NOTE | 2021-06-16 11:42 | NUR ---
PT CAME IN EARLY FOR BLOOD WORK AND WILL RETURN AT 1300.
[2021-06-16 12:18] LABS: Creatinine, Blood 1.16 mg/dL (0.60-1.20); Vancomycin, Trough 23.3 ug/mL (5.0-10.0)
== END 2021-06-16 10:52 | disposition home or self-care (01) ==
LOC: ATC 02:26
PROVIDERS: Family Medicine
DX: M86.9 Osteomyelitis, unspecified (principal)
CPT/HCPCS: 80202; 82565

== ENCOUNTER 2021-06-17 00:35 | Day surgery (SDC) | payer OTHER, MEDICARE ==
[2021-06-17 14:17] LABS: Creatinine, Blood 1.03 mg/dL (0.60-1.20); Vancomycin, Trough 8.6 ug/mL (5.0-10.0)
== END 2021-06-17 16:10 | disposition home or self-care (01) ==
LOC: ATC 00:35
PROVIDERS: Family Medicine
DX: M86.9 Osteomyelitis, unspecified (principal)
CPT/HCPCS: 80202; 82565; J3370; J7050

== ENCOUNTER 2021-06-18 02:12 | Day surgery (SDC) | payer OTHER, MEDICARE | END 2021-06-18 14:50 | disposition home or self-care (01) | LOC: ATC 02:12 | DX: M86.9 Osteomyelitis, unspecified (principal) | CPT/HCPCS: J3370; J7050 ==

== ENCOUNTER 2021-06-19 03:28 | Day surgery (SDC) | payer OTHER, MEDICARE ==
--- NOTE | 2021-06-19 18:12 | NUR ---
PT DID NOT SHOW FOR HIS APPOINTMENT IN THE [facility] TODAY.
== END 2021-06-19 23:00 | disposition home or self-care (01) ==
LOC: ATC 03:28
DX: M86.9 Osteomyelitis, unspecified (principal); L97.514 Non-pressure chronic ulcer of other part of right foot with necrosis of bone; I82.401 Acute embolism and thrombosis of unspecified deep veins of right lower extremity; I73.9 Peripheral vascular disease, unspecified; I11.0 Hypertensive heart disease with heart failure; I50.22 Chronic systolic (congestive) heart failure; E78.5 Hyperlipidemia, unspecified; I25.10 Atherosclerotic heart disease of native coronary artery without angina pectoris; Z95.5 Presence of coronary angioplasty implant and graft; Z87.891 Personal history of nicotine dependence
CPT/HCPCS: J3370; J7050

== ENCOUNTER → 2021-06-24 | Outpatient (CLI) | payer OTHER, MEDICARE ==
[2021-06-24 11:01] LABS: BASOPHILS ABSOLUTE AUTO 0.07 K/mm3 (0.00-0.23); BASOPHILS PERCENT AUTO 1 % (0-2); EOSINOPHILS ABSOLUTE AUTO 0.22 K/mm3 (0.00-0.68); EOSINOPHILS PERCENT AUTO 3 % (0-6); Hematocrit 42.4 % (37.0-53.0); Hemoglobin 12.6 g/dL (13.5-17.5); IMMATURE GRAN ABSOLUTE AUTO 0.03 K/mm3 (0.00-0.10); IMMATURE GRAN PERCENT AUTO 0 % (0-1); LYMPHOCYTES ABSOLUTE AUTO 1.43 K/mm3 (0.84-5.20); LYMPHOCYTES PERCENT AUTO 20 % (21-46); MONOCYTES ABSOLUTE AUTO 0.82 K/mm3 (0.16-1.47); MONOCYTES PERCENT AUTO 12 % (4-13); Mean Corpuscular HGB Conc 29.7 g/dL (31.5-36.5); Mean Corpuscular Volume 98 fL (80-100); Mean Platelet Volume 11.2 fL (9.1-12.4); NEUTROPHILS ABSOLUTE AUTO 4.44 K/mm3 (1.96-9.15); NEUTROPHILS PERCENT AUTO 63 % (41-73); Platelet Count 172 K/mm3 (150-400); RDW Coefficient Variation 15.6 % (11.7-14.2); RDW Standard Deviation 56.1 fL (35.1-46.3); Red Blood Cell Count 4.34 M/mm3 (4.30-5.90); White Blood Cell Count 7.01 K/mm3 (4.00-11.30)
[2021-06-24 11:15] LABS: Alanine Aminotransfer (ALT/SGP 14 U/L (12-78); Albumin, Blood 3.1 g/dL (3.4-5.0); Albumin/Globulin Ratio 0.9 (0.8-1.8); Alk Phos 128 U/L (50-136); Anion Gap 6 mmol/L (6-16); Aspartate Aminotrans (AST/SGOT 11 U/L (12-37); Bilirubin, Total 0.6 mg/dL (0.1-1.0); Blood Urea Nitrogen 17 mg/dL (8-24); Bun/Creatinine Ratio 11.4 (12.0-20.0); CO2, Blood 24 mmol/L (21-32); Calcium, Blood 8.4 mg/dL (8.5-10.1); Chloride, Blood 110 mmol/L (98-108); Creatinine, Blood 1.49 mg/dL (0.60-1.20); Globulin, Blood 3.6 g/dL (2.2-4.0); Glomerular Filtration Rate 46 (60-); Glucose, Blood 96 mg/dL (70-99); Potassium, Blood 4.8 mmol/L (3.5-5.5); Sodium, Blood 140 mmol/L (136-145); Total Protein, Blood 6.7 g/dL (6.4-8.2); Vancomycin, Trough 18.9 ug/mL (5.0-10.0)
== END | disposition home or self-care (01) ==
LOC: LAB SHORT 10:08
PROVIDERS: Family Medicine
DX: M86.171 Other acute osteomyelitis, right ankle and foot (principal); B95.62 Methicillin resistant Staphylococcus aureus infection as the cause of diseases classified elsewhere
CPT/HCPCS: 80053; 80202; 85025; 85651; 86140

== ENCOUNTER → 2021-06-29 09:51 | Emergency (ER) | payer OTHER ==
[~2021-06-29] VITALS: Ht 180.3 cm; Wt 96.2 kg
== END | disposition home or self-care (01) ==
LOC: ER 09:51
DX: I80.8 Phlebitis and thrombophlebitis of other sites (principal); L08.9 Local infection of the skin and subcutaneous tissue, unspecified; Z79.899 Other long term (current) drug therapy; Z79.82 Long term (current) use of aspirin; E78.5 Hyperlipidemia, unspecified; K21.9 Gastro-esophageal reflux disease without esophagitis; F17.210 Nicotine dependence, cigarettes, uncomplicated
CPT/HCPCS: 99283; J3370; J7050

== ENCOUNTER → 2021-07-07 | Outpatient (CLI) | payer MEDICARE ==
[2021-07-07 12:25] LABS: Hematocrit 43.4 % (37.0-53.0); Hemoglobin 13.9 g/dL (13.5-17.5); Mean Corpuscular HGB 29.7 pg (26.0-34.0); Mean Corpuscular Volume 93 fL (80-100); Mean Platelet Volume 11.6 fL (9.1-12.4); Platelet Count 152 K/mm3 (150-400); RDW Coefficient Variation 14.7 % (11.7-14.2); RDW Standard Deviation 50.4 fL (35.1-46.3); Red Blood Cell Count 4.68 M/mm3 (4.30-5.90); White Blood Cell Count 6.69 K/mm3 (4.00-11.30)
[2021-07-07 12:47] LABS: Alanine Aminotransfer (ALT/SGP 17 U/L (12-78); Albumin, Blood 3.4 g/dL (3.4-5.0); Albumin/Globulin Ratio 0.9 (0.8-1.8); Alk Phos 129 U/L (50-136); Anion Gap 5 mmol/L (6-16); Aspartate Aminotrans (AST/SGOT 16 U/L (12-37); Bilirubin, Total 0.5 mg/dL (0.1-1.0); Blood Urea Nitrogen 14 mg/dL (8-24); CO2, Blood 26 mmol/L (21-32); Calcium, Blood 8.7 mg/dL (8.5-10.1); Chloride, Blood 108 mmol/L (98-108); Globulin, Blood 3.6 g/dL (2.2-4.0); Glomerular Filtration Rate 50 (60-); Glucose, Blood 82 mg/dL (70-99); Potassium, Blood 4.6 mmol/L (3.5-5.5); Sodium, Blood 139 mmol/L (136-145); Vancomycin, Random 22.6 ug/mL
== END | disposition home or self-care (01) ==
LOC: LAB 11:21 → LAB SHORT 11:21
PROVIDERS: Family Medicine
DX: M86.171 Other acute osteomyelitis, right ankle and foot (principal); B95.62 Methicillin resistant Staphylococcus aureus infection as the cause of diseases classified elsewhere; L97.513 Non-pressure chronic ulcer of other part of right foot with necrosis of muscle; I25.10 Atherosclerotic heart disease of native coronary artery without angina pectoris; Z79.2 Long term (current) use of antibiotics
CPT/HCPCS: 80053; 80202; 85027

== ENCOUNTER → 2021-07-14 | Outpatient (CLI) | payer MEDICARE ==
[2021-07-14 11:32] LABS: BASOPHILS ABSOLUTE AUTO 0.04 K/mm3 (0.00-0.23); BASOPHILS PERCENT AUTO 1 % (0-2); EOSINOPHILS ABSOLUTE AUTO 0.32 K/mm3 (0.00-0.68); EOSINOPHILS PERCENT AUTO 5 % (0-6); Hematocrit 43.7 % (37.0-53.0); Hemoglobin 13.5 g/dL (13.5-17.5); IMMATURE GRAN ABSOLUTE AUTO 0.02 K/mm3 (0.00-0.10); IMMATURE GRAN PERCENT AUTO 0 % (0-1); LYMPHOCYTES ABSOLUTE AUTO 1.29 K/mm3 (0.84-5.20); LYMPHOCYTES PERCENT AUTO 19 % (21-46); MONOCYTES ABSOLUTE AUTO 1.06 K/mm3 (0.16-1.47); MONOCYTES PERCENT AUTO 16 % (4-13); Mean Corpuscular HGB 28.8 pg (26.0-34.0); Mean Corpuscular HGB Conc 30.9 g/dL (31.5-36.5); Mean Corpuscular Volume 93 fL (80-100); Mean Platelet Volume 12.1 fL (9.1-12.4); NEUTROPHILS ABSOLUTE AUTO 4.13 K/mm3 (1.96-9.15); NEUTROPHILS PERCENT AUTO 60 % (41-73); Platelet Count 148 K/mm3 (150-400); RDW Coefficient Variation 14.1 % (11.7-14.2); RDW Standard Deviation 48.1 fL (35.1-46.3); Red Blood Cell Count 4.68 M/mm3 (4.30-5.90); White Blood Cell Count 6.86 K/mm3 (4.00-11.30)
[2021-07-14 11:46] LABS: Alanine Aminotransfer (ALT/SGP 18 U/L (12-78); Albumin, Blood 3.3 g/dL (3.4-5.0); Alk Phos 123 U/L (50-136); Anion Gap 8 mmol/L (6-16); Aspartate Aminotrans (AST/SGOT 9 U/L (12-37); Bilirubin, Total 0.4 mg/dL (0.1-1.0); Blood Urea Nitrogen 14 mg/dL (8-24); Bun/Creatinine Ratio 10.9 (12.0-20.0); CO2, Blood 24 mmol/L (21-32); Calcium, Blood 8.4 mg/dL (8.5-10.1); Chloride, Blood 110 mmol/L (98-108); Creatinine, Blood 1.29 mg/dL (0.60-1.20); Globulin, Blood 3.4 g/dL (2.2-4.0); Glomerular Filtration Rate 55 (60-); Glucose, Blood 73 mg/dL (70-99); Potassium, Blood 3.1 mmol/L (3.5-5.5); Sodium, Blood 142 mmol/L (136-145); Total Protein, Blood 6.7 g/dL (6.4-8.2); Vancomycin, Trough 13.3 ug/mL (5.0-10.0)
== END ==
LOC: LAB SHORT 09:10
PROVIDERS: Family Medicine
DX: M86.171 Other acute osteomyelitis, right ankle and foot (principal); B95.62 Methicillin resistant Staphylococcus aureus infection as the cause of diseases classified elsewhere; L97.513 Non-pressure chronic ulcer of other part of right foot with necrosis of muscle; I25.10 Atherosclerotic heart disease of native coronary artery without angina pectoris; Z79.2 Long term (current) use of antibiotics
CPT/HCPCS: 80053; 80202; 85025